=== PATIENT | male | born 1985 | race Caucasian/White ===

== ENCOUNTER 2017-05-30 09:31 | Day surgery (SDC) | payer OTHER ==
[~2017-05-30] VITALS: Ht 157.5 cm; Wt 59.1 kg
[~2017-05-30 09:31] MED LIST: DOCU-144 PO; KEP100S PO; LANS30TA6 GTB; OXCA300O4 PO; OXCA300T3 PO; SENN-36 PO; UDREG GTB
[2017-05-30] MEDS ORDERED: PROPOFOL 40 ML ONE (10:23)
[2017-05-30] MEDS ORDERED: LIDOCAINE 100 MG SYRINGE ONE (10:23)
[2017-05-30] MEDS ORDERED: FENTAnyl 50 MCG/ML VIAL ONE (10:23)
[2017-05-30] MEDS ORDERED: ETOMIDATE 20 MG INJ ONE (10:23)
[2017-05-30] MEDS ORDERED: RANITIDINE (10:24)
[2017-05-30] MEDS ORDERED: ONDANSETRON 4 MG INJ ONE (10:26)
[2017-05-30 10:27] VITALS: Ht 157.5 cm; Wt 59.1 kg
[2017-05-30 10:38] VITALS: BP 103/71; PULSE 75; RESP 15
[2017-05-30 11:35] VITALS: BP 122/86; PULSE 80; RESP 17
--- NOTE | 2017-06-09 06:18 | GILP ---
DATE OF PROCEDURE: PROCEDURE PERFORMED: Esophagogastroduodenoscopy with biopsy and percutaneous endoscopic gastrostomy. INDICATION: A 31-year-old male with a history of chronic esophagitis, complaints of heartburn and weight loss and also leakage of G-tube, which is in the form of balloon 18-Dutch. The risks of the procedure, related complications, anesthetic risks and alternatives discussed and informed consent was obtained. DESCRIPTION OF PROCEDURE: Patient was brought to the GI lab, sedated by Dr. Atwood. After optimal sedation, scope was passed with much resistance into the esophagus. Had a large hiatal hernia. Z-line was at 25 cc. Biopsy was taken while coming out to rule out Varghese's. He had some erosions in the distal part of the esophagus. Stomach mucosa revealed gastritis. Biopsy taken to rule out H pylori infection. Duodenum, 1st and 2nd part were within normal limits. The replacement tube was removed by deflating the balloon. Again, the valve was not working, so we just removed the balloon by the traction method, which came out easily. Through the same gastrocutaneous fistula, the blue string was passed. It was identified in the stomach, snared with , endoscopically , snared and pulled out through the mouth. The whole procedure was completed by modified Ponsky's technique. Patient was re-scoped. The position of the internal bumper confirmed. Excellent bumper secured. The patient tolerated the procedure very well. IMPRESSION: 1. Hiatal hernia. 2. Esophagitis, rule out Varghese's. 3. Gastritis. 4. Percutaneous endoscopic gastrostomy placement. 5. Removal of the replacement gastrostomy tube. PLAN: Continue H2 susan or PPI. Dietary modification and we will review the histopathology. Dictated By: Suman Ceballos MD /[email or web address]/taylor /Document#: [id number] CC: Suman Ceballos MD; Primary Care;*End*
== END 2017-05-30 13:36 | disposition home or self-care (01) ==
LOC: GIL 09:31
PROVIDERS: ATTEND Internal Medicine Gastroenterology
DX: K21.0 Gastro-esophageal reflux disease with esophagitis (principal); K44.9 Diaphragmatic hernia without obstruction or gangrene; K29.70 Gastritis, unspecified, without bleeding; R62.59 Other lack of expected normal physiological development in childhood
CPT/HCPCS: 43239; 43246; 88305; 88313; J2001; J2405; J3010; Z7610; 88312

== ENCOUNTER 2017-07-17 17:33 | Inpatient (IN) | payer OTHER ==
[~2017-07-17] VITALS: Ht 165.1 cm; Wt 54.2 kg
[~2017-07-17 17:33] MED LIST changes: +RANITIDINE
[2017-07-17 18:00] VITALS: BP 135/78; PULSE 126; RESP 22
[2017-07-17 18:13] VITALS: Ht 165.1 cm; Wt 54.2 kg
[2017-07-17] MEDS: SOD CHLORIDE 0.9% 1,000 ML IV SCH (18:57)
[2017-07-17] MEDS ORDERED: NA PHOSPHATE/BIPHOS 133 ML ENEMA PR PRN (19:00)
[2017-07-17] MEDS ORDERED: NITROGLYCERIN (SL) 0.4 MG TAB SL PRN (19:00)
[2017-07-17] MEDS ORDERED: DOCUSATE SODIUM 100 MG CAP PO SCH (19:00)
[2017-07-17] MEDS ORDERED: MAGNESIUM HYDROXIDE 30ML CUP PO PRN (19:00)
[2017-07-17] MEDS ORDERED: LORAZEPAM 2 MG INJ IV PRN (19:00)
[2017-07-17] MEDS ORDERED: ALBUTEROL/IPRATROPIUM (NEB) 3 ML AMP HHN PRN (19:00)
[2017-07-17] MEDS ORDERED: HYDROCODONE/APAP (5/325) TAB PO PRN (19:00)
[2017-07-17] MEDS ORDERED: NACL 0.9% 3 ML SYG IV SCH (19:00)
[2017-07-17] MEDS ORDERED: VANCOMYCIN IV PER PHARMACY XX SCH (19:00)
[2017-07-17] MEDS ORDERED: morphine 2 MG INJ IV PRN (19:00)
[2017-07-17] MEDS ORDERED: ONDANSETRON 4 MG INJ IV PRN (19:00)
[2017-07-17] MEDS ORDERED: hydrALAzine 20 MG INJ IV PRN (19:00)
[2017-07-17] MEDS ORDERED: DOCUSATE SODIUM 100 MG CAP PO PRN (19:00)
[2017-07-17] MEDS ORDERED: ACETAMINOPHEN 325 MG TAB PO PRN (19:00)
--- NOTE | 2017-07-17 19:11 | HP ---
Date/Time of Note Date/Time of Note DATE: 07/17/17 TIME: 19:10 Assessment/Plan VTE Prophylaxis VTE Prophylaxis Intervention: SCD's Assessment/Plan Chief Complaint/Hosp Course Assessment and plan: 31-year-old male with vomiting, abdominal pain, cough, signs of mild pneumonia and elevated LFTs, prior history of cerebral palsy and STUDIO DESIGNER shunt 1. Cough, abdominal pain, vomiting: Likely secondary to patient's mild pneumonia -Check H, A1c, lipid panel, continue IV fluids and aztreonam antibiotics given his multiple drug allergy -Tylenol as needed pain fevers, follow final cultures 2. History of cerebral palsy, patient has STUDIO DESIGNER shunt in place -Monitor for now 3. Epilepsy: No signs of any present seizure activity -Continue Keppra at current dose 4. Tachycardia: Likely secondary to #1, continue broad-spectrum antibiotics, monitor heart rate 5. Elevated LFTs and common bile duct stone: Apparently this was found on imaging studies at outside hospital, but looking at the CT abdomen pelvis results myself, I do not see this documented. The AST and ALT were mildly elevated -May need to repeat CT abdomen pelvis result here -We will monitor LFTs and check hepatitis panel - Problems: HPI/ROS Admit Date/Time Admit Date/Time Jul 17, 2017 at 17:33 Hx of Present Illness 31-year-old male past medical history of cerebral palsy, epilepsy, nonambulatory , history of STUDIO DESIGNER shunt, sent over from [facility] due to insurance purposes. Patient earlier today was having complaints of abdominal pain, nausea vomiting. He was noted to have vomiting 2 that started last night nonbilious nonbloody. Patient was recently treated at [facility] from July 09 2 July 14 for a STUDIO DESIGNER shunt malformation which apparently was repaired. Signs of any active seizure activity since then. No signs of any upper or lower GI bleeding, fevers or chills, dizziness, diarrhea or constipation. When he went to the outside hospital he was found with elevated LFTs today, and signs of possible pneumonia on his chest x-ray. PMH/Family/Social Past Surgical History STUDIO DESIGNER shunt placement Family History Significant Family History: no pertinent family hx Social History Alcohol Use: none Smoking Status: Never smoker Drug Use: none Exam/Review of Systems Exam Exam General: Lying in bed, family at bedside HEENT: Unable to fully assess as patient has eyes closed Neck: Supple Respiratory: Clear to auscultation bilateral Cardiovascular: S1, S2 heard, tachycardic Abdomen: G-tube in place, non-distended, nontender Musculoskeletal: No lower extremity edema Neuro: Unable to fully assess because the patient's cerebral palsy Medications Medications Current Medications Ondansetron HCl (Zofran Inj) 4 mg Q6H PRN IV NAUSEA AND/OR VOMITING; Start at 19:00 Acetaminophen (Tylenol Tab) 650 mg Q6H PRN PO PAIN LEVEL 1-3 OR FEVER; Start at 19:00 Acetaminophen/ Hydrocodone Bitart ([place] (5/325)) 1 tab Q6H PRN PO MODERATE PAIN LEVEL 4-6; Start 07/17/17 at 19:00 Morphine Sulfate (morphine) 2 mg Q4H PRN IV SEVERE PAIN LEVEL 7-10; Start 07/17 at 19:00 Docusate Sodium (Colace) 100 mg Q12H PRN PO CONSTIPATION; Start 07/17/17 at 19: 00 Magnesium Hydroxide (Milk Of Mag) 30 ml DAILY PRN PO CONSTIPATION; Start at 19:00 Sodium Biphosphate/ Sodium Phosphate (Fleet Enema) 133 ml DAILY PRN NE CONSTIPATION; Start 07/17/17 at 19:00 Lorazepam 0.5 mg 0.5 mg Q6H PRN IV ANXIETY; Start 07/17/17 at 19:00 Sodium Chloride (NS) 1,000 ml @ 125 mls/hr Q8H IV Last administered on t 18:57; Admin Dose 125 MLS/HR; Start 07/17/17 at 18:43 Hydralazine HCl (Apresoline) 10 mg Q6H PRN IV ELEVATED BLOOD PRESSURE; Start at 19:00 Nitroglycerin (Nitroglycerin (Sl Tab) 0.4 Mg) 1 tab Q5M PRN SL ANGINA; Start at 19:00 Docusate Sodium (Colace) 100 mg Q12H PO ; Start 07/17/17 at 19:00 Lansoprazole (Prevacid) 30 mg BID GTB ; Start 07/17/17 at 21:00 Metoclopramide HCl (Reglan Liq) 10 mg Q6 GTB ; Start 07/18/17 at 00:00 Oxcarbazepine (Trileptal Susp (Ped)) 300 mg BID PO ; Start 07/17/17 at 21:00 Oxcarbazepine (Trileptal) 300 mg BID PO ; Start 07/17/17 at 21:00 Senna 2 tab 2 tab BID PO ; Start 07/17/17 at 21:00 Aztreonam (Azactam 1gm/NS (Pmx)) 50 ml @ 100 mls/hr Q12 IVPB ; Start 07/17/17 at 21:00 Levetiracetam (Keppra) 1,000 mg BID PO ; Start 07/17/17 at 21:00 SHAY SEO Jul 17, 2017 19:11
[2017-07-17 19:29] LABS: HAAIG REFLEX REFLEX FILED
[2017-07-17] MEDS ORDERED: MAGNESIUM HYDROXIDE 30ML CUP GTB PRN (19:45)
[2017-07-17 19:49] LABS: INR 1.04; PROTIME 13.6 Sec (12.2-14.2); PT RATIO 1.1
[2017-07-17] MEDS ORDERED: HYDROCODONE/APAP (5/325) TAB GTB PRN (19:49)
[2017-07-17 19:50] LABS: PARTIAL THROMBOPLASTIN TIME 25.9 Sec (25.0-35.0)
[2017-07-17] MEDS ORDERED: DOCUSATE SODIUM 10 MG/ML (10ML CUP) GTB PRN (20:00)
[2017-07-17] MEDS ORDERED: ACETAMINOPHEN 650MG/20.3ML CUP GTB PRN (20:00)
[2017-07-17] MEDS ORDERED: DOCUSATE SODIUM 10 MG/ML (10ML CUP) PO PRN (20:00)
[2017-07-17 20:21] VITALS: BP 136/79; RESP 16
[2017-07-17 20:42] LABS: HEPATITIS B CORE ANTIBODY NEGATIVE (NEGATIVE)
[2017-07-17] MEDS: AZTREONAM 1 GM/NS (PMX) 50 ML IVPB SCH (20:45)
[2017-07-17] MEDS: LEVETIRACETAM 500 MG TAB GTB SCH (20:48)
[2017-07-17] MEDS: DOCUSATE SODIUM 10 MG/ML (10ML CUP) GTB SCH (20:48)
[2017-07-17] MEDS: SENNA TAB GTB SCH (20:48)
[2017-07-17] MEDS: LANSOPRAZOLE 30 MG CAP GTB SCH (20:48)
[2017-07-17] MEDS: OXCARBAZEPINE 300 MG TAB GTB SCH (20:49)
[2017-07-17] MEDS ORDERED: LEVETIRACETAM (100 MG/ML PO SYG) PO SCH (21:00)
[2017-07-17] MEDS ORDERED: OXCARBAZEPINE SUSP 60 MG/ML (PO SYG) PO SCH (21:00)
[2017-07-17 21:30] VITALS: PULSE 120
[2017-07-17 22:27] LABS: ADD UMIC NO; UR ASCORBIC ACID 40 mg/dL (NEGATIVE); UR BILIRUBIN (Dip) NEGATIVE (NEGATIVE); UR BLOOD (Dip) NEGATIVE (NEGATIVE); UR CLARITY CLEAR (CLEAR); UR COLOR YELLOW (YELLOW); UR GLUCOSE (Dip) 2+ mg/dL (NEGATIVE); UR KETONES (Dip) NEGATIVE (NEGATIVE); UR LEUKOCYTE ESTERASE (Dip) NEGATIVE Leu/ul (NEGATIVE); UR NITRITE (Dip) NEGATIVE (NEGATIVE); UR TOTAL PROTEIN (Dip) NEGATIVE (NEGATIVE); UR UROBILINOGEN (Dip) 1+ mg/dL (NEGATIVE)
[2017-07-17 22:30] VITALS: PULSE 110
[2017-07-17] MEDS: METOCLOPRAMIDE (1 MG/ML) 10 ML CUP GTB SCH (23:05)
[2017-07-17 23:11] VITALS: PULSE 106
[2017-07-18] VITALS (7 sets, daily range): BP systolic 91–120; BP diastolic 52–75; PULSE 92–104; RESP 18–21
[2017-07-18] MEDS: SOD CHLORIDE 0.9% 1,000 ML IV SCH ×4 (03:17→23:37)
[2017-07-18] MEDS: METOCLOPRAMIDE (1 MG/ML) 10 ML CUP GTB SCH ×4 (05:19→23:37)
[2017-07-18] MEDS ORDERED: PANTOPRAZOLE 40 MG INJ IV SCH ×2 (06:00→16:30)
[2017-07-18 06:12] LABS: BASOPHILS % 0.5 % (0.0-2.0); EOSINOPHILS # 0.5 10^3/ul (0.0-0.5); EOSINOPHILS % 5.3 % (0.0-7.0); HEMATOCRIT 39.4 % (42.0-52.0); HEMOGLOBIN 13.3 g/dl (14.0-18.0); LYMPHOCYTES # 1.8 10^3/ul (0.8-2.9); MEAN CORPUSCULAR HEMOGLOBIN 28.7 pg (29.0-33.0); MEAN CORPUSCULAR HGB CONC 33.8 g/dl (32.0-37.0); MEAN CORPUSCULAR VOLUME 85.1 fl (82.0-101.0); MEAN PLATELET VOLUME 11.2 fl (7.4-10.4); MONOCYTE # 1.2 10^3/ul (0.3-0.9); MONOCYTES % 13.6 % (0.0-11.0); NEUTROPHILS % 59.4 % (39.0-77.0); PLATELET COUNT 239 10^3/UL (140-415); RED BLOOD COUNT 4.63 10^6/ul (4.70-6.10); RED CELL DISTRIBUTION WIDTH 13.2 % (11.5-14.5); WHITE BLOOD COUNT 8.4 10^3/ul (4.8-10.8)
[2017-07-18 06:44] LABS: ALBUMIN 3.5 g/dl (3.3-4.9); BILIRUBIN,INDIRECT 0.2 mg/dl (0-1.1); BILIRUBIN,TOTAL 0.2 mg/dl (0.2-1.3); TOTAL PROTEIN 6.9 g/dl (6.1-8.1)
[2017-07-18 06:46] LABS: CALCIUM 8.5 mg/dl (8.4-10.2); CHOL/HDL RATIO 3.1 RATIO; CREATININE 0.52 mg/dl (0.61-1.24); MAGNESIUM 2.2 mg/dl (1.7-2.5); PHOSPHORUS 3.1 mg/dl (2.5-4.9); POTASSIUM 4.2 mmol/L (3.5-5.1)
[2017-07-18 08:22] LABS: THYROID STIMULATING HORMONE 1.71 MIU/L (0.465-4.680)
[2017-07-18] MEDS: AZTREONAM 1 GM/NS (PMX) 50 ML IVPB SCH ×2 (09:19→20:27)
[2017-07-18] MEDS: LANSOPRAZOLE 30 MG CAP GTB SCH ×2 (09:20→20:26)
[2017-07-18] MEDS: DOCUSATE SODIUM 10 MG/ML (10ML CUP) GTB SCH ×2 (09:20→20:26)
[2017-07-18] MEDS: OXCARBAZEPINE 300 MG TAB GTB SCH ×2 (09:20→20:26)
[2017-07-18] MEDS: SENNA TAB GTB SCH ×2 (09:20→20:26)
[2017-07-18] MEDS: LEVETIRACETAM 500 MG TAB GTB SCH ×2 (09:20→20:26)
[2017-07-18] MEDS ORDERED: NA PHOSPHATE/BIPHOS 133 ML ENEMA PR ONE (16:00)
--- NOTE | 2017-07-18 16:04 | PN ---
Date/Time of Note Date/Time of Note DATE: 07/18/17 TIME: 15:59 Assessment/Plan VTE Prophylaxis VTE Prophylaxis Intervention: SCD's Lines/Catheters IV Catheter Type (from Nrsg): Peripheral IV Urinary Cath still in place: No Assessment/Plan Chief Complaint/Hosp Course Assessment and plan: 31-year-old male with vomiting, abdominal pain, cough, signs of mild pneumonia and elevated LFTs, prior history of cerebral palsy and PROCUREMENT MANAGER shunt. 1. Cough, abdominal pain, vomiting: Likely secondary to patient's mild pneumonia. Symptoms appear to be improving overall -For now continue IV fluids and aztreonam antibiotics given his multiple drug allergy -Tylenol as needed pain fevers, follow final cultures 2. History of cerebral palsy, patient has PROCUREMENT MANAGER shunt in place, and this was revised at [facility] during recent admission there from July 11 to July 14 2017 -Monitor for now 3. Epilepsy: No signs of any present seizure activity -Continue Keppra at current dose 4. Tachycardia: Likely secondary to #1, resolved now - continue broad-spectrum antibiotics, monitor heart rate 5. Elevated LFTs and common bile duct stone: Apparently this was found on imaging studies at outside hospital, but looking at the CT abdomen pelvis results myself, I do not see this documented. The AST and ALT were mildly elevated, and still are today, but bilirubin levels are normal. Hepatitis panel is normal -We will continue to monitor LFTs Problems: Subjective 24 Hr Interval Summary Free Text/Dictation Patient not able to get MRCP because of PROCUREMENT MANAGER shunt. Less tachycardia in the last 24 hours. No acute events overnight. Exam/Review of Systems Vital Signs Vitals Vital Signs Date Time Temp Pulse Resp B/P Pulse Ox O2 Delivery O2 Flow Rate FiO2 07/18/17 14:17 97.2 82 18 120/75 98 07/18/17 09:34 Nasal Cannula 2.0 Intake and Output 07/17/17 07/17/17 07/18/17 15:00 23:00 07:00 Intake Total 50 ml 1250 ml Balance 50 ml 1250 ml Exam General: Lying in bed, family at bedside HEENT: Unable to fully assess as patient has eyes closed Neck: Supple Respiratory: Clear to auscultation bilateral Cardiovascular: S1, S2 heard, tachycardic Abdomen: G-tube in place, non-distended, nontender Musculoskeletal: No lower extremity edema Neuro: Unable to fully assess because the patient's cerebral palsy Results Result Diagram: 07/18/17 0507 07/18/17 0507 Results 24 hrs Laboratory Tests Test 07/17/17 19:00 07/17/17 22:00 07/18/17 05:07 Prothrombin Time 13.6 Prothrombin Time Ratio 1.1 INR International Normalized Ratio 1.04 Activated Partial Thromboplast Time 25.9 Free Thyroxine 0.90 Hepatitis B Surface Antigen NEGATIVE Hepatitis B Core Total Antibody NEGATIVE Hepatitis C Antibody NEGATIVE Urine Color YELLOW Urine Clarity CLEAR Urine pH 7.0 Urine Specific Ball 1.020 Urine Ketones NEGATIVE Urine Nitrite NEGATIVE Urine Bilirubin NEGATIVE Urine Urobilinogen 1+ H Urine Leukocyte Esterase NEGATIVE Urine Hemoglobin NEGATIVE Urine Glucose 2+ H Urine Total Protein NEGATIVE White Blood Count 8.4 # Red Blood Count 4.63 L Hemoglobin 13.3 L Hematocrit 39.4 L Mean Corpuscular Volume 85.1 Mean Corpuscular Hemoglobin 28.7 L Mean Corpuscular Hemoglobin Concent 33.8 Red Cell Distribution Width 13.2 Platelet Count 239 Mean Platelet Volume 11.2 #H Neutrophils % 59.4 Lymphocytes % 21.0 Monocytes % 13.6 H Eosinophils % 5.3 Basophils % 0.5 Nucleated Red Blood Cells % 0.0 Neutrophils # (Manual) 5.0 Lymphocytes # 1.8 Monocytes # 1.2 H Eosinophils # 0.5 Basophils # 0.0 Nucleated Red Blood Cells # 0.0 Sodium Level 145 H Potassium Level 4.2 Chloride Level 106 Carbon Dioxide Level 25 Anion Gap 18 H Blood Urea Nitrogen 7 Creatinine 0.52 L Glucose Level 108 Hemoglobin A1c 5.2 Calcium Level 8.5 Phosphorus Level 3.1 Magnesium Level 2.2 Total Bilirubin 0.2 Direct Bilirubin 0.00 Indirect Bilirubin 0.2 Aspartate Amino Transf (AST/SGOT) 142 H Alanine Aminotransferase (ALT/SGPT) 252 H Alkaline Phosphatase 269 H Total Protein 6.9 Albumin 3.5 Triglycerides Level 60 Cholesterol Level 126 LDL Cholesterol, Calculated 74 HDL Cholesterol 40 Cholesterol/HDL Ratio 3.1 Thyroid Stimulating Hormone (TSH) 1.710 Medications Medications Current Medications Ondansetron HCl (Zofran Inj) 4 mg Q6H PRN IV NAUSEA AND/OR VOMITING; Start at 19:00 Morphine Sulfate (morphine) 2 mg Q4H PRN IV SEVERE PAIN LEVEL 7-10; Start 07/17 at 19:00 Sodium Biphosphate/ Sodium Phosphate (Fleet Enema) 133 ml DAILY PRN CA CONSTIPATION; Start 07/17/17 at 19:00 Lorazepam 0.5 mg 0.5 mg Q6H PRN IV ANXIETY; Start 07/17/17 at 19:00 Sodium Chloride (NS) 1,000 ml @ 125 mls/hr Q8H IV Last administered on 13:02; Admin Dose 125 MLS/HR; Start 07/17/17 at 18:43 Hydralazine HCl (Apresoline) 10 mg Q6H PRN IV ELEVATED BLOOD PRESSURE; Start at 19:00 Nitroglycerin (Nitroglycerin (Sl Tab) 0.4 Mg) 1 tab Q5M PRN SL ANGINA; Start at 19:00 Lansoprazole (Prevacid) 30 mg BID GTB Last administered on 07/18/17 09:20; Admin Dose 30 MG; Start 07/17/17 at 21:00 Metoclopramide HCl (Reglan Liq) 10 mg Q6 GTB Last administered on 07/18/17 13: 03; Admin Dose 10 MG; Start 07/18/17 at 00:00 Oxcarbazepine (Trileptal) 300 mg BID GTB Last administered on 07/18/17 09:20; Admin Dose 300 MG; Start 07/17/17 at 21:00 Senna 2 tab 2 tab BID GTB Last administered on 07/18/17 09:20; Admin Dose 2 TAB; Start 07/17/17 at 21:00 Aztreonam (Azactam 1gm/NS (Pmx)) 50 ml @ 100 mls/hr Q12 IVPB Last administered on 07/18/17 09:19; Admin Dose 100 MLS/HR; Start 07/17/17 at 21:00 Levetiracetam (Keppra) 1,000 mg BID GTB Last administered on 07/18/17 09:20; Admin Dose 1,000 MG; Start 07/17/17 at 21:00 Magnesium Hydroxide (Milk Of Mag) 30 ml DAILY PRN GTB CONSTIPATION; Start 07/17 at 19:45 Acetaminophen (Tylenol Liquid) 650 mg Q6H PRN GTB PAIN LEVEL 1-3 OR FEVER; Start 07/17/17 at 20:00 Docusate Sodium (Colace Liquid Cup) 100 mg Q12 GTB Last administered on t 09:20; Admin Dose 100 MG; Start 07/17/17 at 21:00 Acetaminophen/ Hydrocodone Bitart ([place] (5/325)) 1 tab Q6H PRN GTB MODERATE PAIN LEVEL 4-6; Start 07/17/17 at 19:49 Docusate Sodium (Colace Liquid Cup) 100 mg Q12H PRN GTB CONSTIPATION; Start at 20:00 Sodium Biphosphate/ Sodium Phosphate (Fleet Enema) 133 ml ONCE ONCE CA ; Start 07/18/17 at 16:00; Stop 07/18/17 at 16:01 SHAY SEO Jul 18, 2017 16:03
[2017-07-18] MEDS ORDERED: CEPASTAT LOZENGE MT PRN (16:30)
[2017-07-18] MEDS ORDERED: ALBUTEROL/IPRATROPIUM (NEB) 3 ML AMP HHN SCH (16:30)
[2017-07-19 02:50] VITALS: BP 118/69; RESP 20
[2017-07-19] MEDS: METOCLOPRAMIDE (1 MG/ML) 10 ML CUP GTB SCH ×3 (05:26→17:14)
[2017-07-19 06:39] LABS: BASOPHIL # 0.1 10^3/ul (0.0-0.1); BASOPHILS % 0.8 % (0.0-2.0); EOSINOPHILS # 0.4 10^3/ul (0.0-0.5); EOSINOPHILS % 4.5 % (0.0-7.0); HEMOGLOBIN 13.2 g/dl (14.0-18.0); LYMPHOCYTES # 1.6 10^3/ul (0.8-2.9); LYMPHOCYTES % 20.3 % (15.0-51.0); MEAN CORPUSCULAR HEMOGLOBIN 28.3 pg (29.0-33.0); MEAN CORPUSCULAR HGB CONC 33.8 g/dl (32.0-37.0); MEAN CORPUSCULAR VOLUME 83.7 fl (82.0-101.0); MEAN PLATELET VOLUME 11.2 fl (7.4-10.4); MONOCYTE # 1.1 10^3/ul (0.3-0.9); MONOCYTES % 13.3 % (0.0-11.0); NEUTROPHILS % 60.8 % (39.0-77.0); PLATELET COUNT 267 10^3/UL (140-415); RED BLOOD COUNT 4.66 10^6/ul (4.70-6.10); RED CELL DISTRIBUTION WIDTH 13.1 % (11.5-14.5); WHITE BLOOD COUNT 7.9 10^3/ul (4.8-10.8)
[2017-07-19 07:04] LABS: CREATININE 0.47 mg/dl (0.61-1.24); POTASSIUM 3.5 mmol/L (3.5-5.1)
[2017-07-19 08:00] VITALS: BP 112/64; RESP 18
[2017-07-19] MEDS: SOD CHLORIDE 0.9% 1,000 ML IV SCH ×2 (08:15→17:14)
[2017-07-19] MEDS: LEVETIRACETAM 500 MG TAB GTB SCH (08:48)
[2017-07-19] MEDS: DOCUSATE SODIUM 10 MG/ML (10ML CUP) GTB SCH (08:48)
[2017-07-19] MEDS: OXCARBAZEPINE 300 MG TAB GTB SCH (08:48)
[2017-07-19] MEDS: LANSOPRAZOLE 30 MG CAP GTB SCH (08:48)
[2017-07-19] MEDS: SENNA TAB GTB SCH (08:48)
[2017-07-19] MEDS: AZTREONAM 1 GM/NS (PMX) 50 ML IVPB SCH (08:49)
--- NOTE | 2017-07-19 16:53 | PDOCDIS ---
Discharge Instructions CONDITION Patient Condition: Stable HOME CARE INSTRUCTIONS: Special Diet: Tube feeds ACTIVITY: Activity Restrictions: Slowly Increase Activity FOLLOW UP/APPOINTMENTS Follow-up Plan Please follow up with your doctor in the clinic in 1 week. SHAY SEO Jul 19, 2017 16:53
[2017-07-19] MEDS ORDERED: LEVO750T25 PO (16:58)
--- NOTE | 2017-07-19 17:50 | DS ---
DATE OF ADMISSION: 07/17/2017 DATE OF DISCHARGE: 07/19/2017 HOSPITAL COURSE: The patient came in with cough, abdominal pain, nausea, and vomiting. He was transferred from outside hospital due to insurance purposes. He was found with elevated liver function tests and had imaging studies performed as well. When he came in he had slightly elevated AST and ALT in the low 200 range, but his abdominal ultrasound was negative for any acute findings. He also had signs of upper respiratory infection and possible mild pneumonia. So he was placed on aztreonam antibiotics. Over the course of his hospital stay he had some tachycardia on admission that improved. He was back at his baseline status. He does have a history of cerebral palsy. He had no fever or leukocytosis on during the stay. His liver function tests were also trending down by the time of discharge. We are going to feed him today as well through the G tube with his normal feeds of Boost and Ensure. He was able to tolerate a diet and he will be discharged home today in improved condition. DISCHARGE MEDICATIONS: 1. Levaquin 750 mg daily. 2. Colace 100 mg q.12 hours. 3. Prevacid 30 mg b.i.d. 4. Keppra 1000 mg b.i.d. 5. Reglan 10 mg q.6 hours. 6. Trileptal 300 mg b.i.d. 7. Oxcarbazepine 300 mg b.i.d. 8. Senna 2 tabs b.i.d. FOLLOWUP: Continue to follow with regular doctor in the clinic in next 1-2 weeks. FINAL DIAGNOSES: 1. Cerebral palsy. 2. Epilepsy. 3. History of ventriculoperitoneal (PRODUCTION CONTROL PLANNER) shunt. 4. Mild pneumonia, resolving. 5. Elevated liver function tests (LFTs), unclear source resolving. Time spent discharging the patient 40 minutes. Dictated By: Mike Perez MD /luis/jess /Document#: [id number]
== END 2017-07-19 18:38 | disposition home or self-care (01) | DRG 195 ==
LOC: PP2 17:33
PROVIDERS: ADMIT Hospitalist; ATTEND Hospitalist
DX: J18.9 Pneumonia, unspecified organism (principal); G80.9 Cerebral palsy, unspecified; Z93.1 Gastrostomy status; G40.909 Epilepsy, unspecified, not intractable, without status epilepticus; R00.0 Tachycardia, unspecified; Z98.2 Presence of cerebrospinal fluid drainage device; R74.8 Abnormal levels of other serum enzymes
CPT/HCPCS: 80048; 80061; 80076; 81003; 83036; 83735; 84100; 84439; 84443; 85025; 85610; 85730; 86704; 86709; 86803; 87081; 87086; 87340; J7030

== ENCOUNTER 2017-07-30 11:58 | Inpatient (IN) | payer OTHER ==
[~2017-07-30] VITALS: Ht 167.6 cm; Wt 57.1 kg
[~2017-07-30 11:58] MED LIST changes: +LEVO750T25 PO
--- NOTE | 2017-07-30 13:19 | ERA ---
ER Documentation Chief Complaint Date/Time DATE: 07/30/17 TIME: 13:12 Chief Complaint SENT FROM [place] FOR ADMISSION. PT WAS DX WITH PNA/FEVER HPI This 31-year-old male is brought in for a [place] because It in this hospital. Diagnosis is pneumonia with sepsis. He was sent in for direct admission however there are no beds in the hospital so he will be monitored in the emergency room. His caretakers with him although the patient is nonverbal because he has cerebral palsy. Breathing very fast and has a high heart rate. [place] has already been administered fluid and appropriate antibiotics to the septic patient. ROS Unobtainable from patient Medications Home Meds Active Scripts Levofloxacin* (Levaquin*) 750 Mg Tablet, 750 MG PO DAILY for 5 Days, #5 TAB Prov:SHAY SEO. 07/19/17 Lansoprazole* (Prevacid* Soltab) 30 Mg Tab, 30 MG GTB BID for 30 Days, TAB Prov:MIGUEL ANGEL ZAPATA V. ORDER DESK CALLER 10/12/16 Metoclopramide* (Reglan*) 10 Mg/10 Ml Soln, 10 MG GTB Q6 for 30 Days, ML HOLD IF HAVING DIARRHEA (GREATER THAN 3 BOWEL MOVEMENT A DAY) Prov:MIGUEL ANGEL ZAPATA V. ORDER DESK CALLER 10/12/16 Docusate Sodium* (Colace*) 100 Mg Cap, 100 MG PO Q12H for 30 Days, CAP Prov:STEVE ATWOOD 03/17/16 Sennosides* (Senokot*) 1 Tab Tab, 2 TAB PO BID for 30 Days, TAB Prov:STEVE ATWOOD 03/17/16 Levetiracetam* (Keppra* (Ped)) 100 Mg/Ml Liq, 1000 MG PO BID for 30 Days, BOTTLE Prov:REGSTEVE PAULA 03/17/16 Oxcarbazepine* (Trileptal*) 300 Mg Tab, 300 MG PO BID for 30 Days, TAB Prov:THEO JONES ORDER DESK CALLER 12/30/15 Reported Medications [Ranitidine] No Conflict Check 05/30/17 Oxcarbazepine* (Oxcarbazepine* Liq) 300 Mg/5 Ml Oral.susp, 300 MG PO BID, ML 10/09/16 Allergies Allergies: Coded Allergies: Penicillins (Verified Allergy, Unknown, 09/28/15) amoxicillin (Verified Allergy, Unknown, 09/28/15) throat swells hives azithromycin (Verified Allergy, Unknown, 09/28/15) codeine (Unverified Allergy, Unknown, 09/28/15) morphine (Unverified Allergy, Unknown, 09/28/15) vancomycin (Unverified Allergy, Unknown, 08/26/15) PMhx/Soc History of Surgery: Yes (MANAGER FOOD Shunt - 07/11, at , spine repair (scoliosis)) Anesthesia Reaction: No Hx Neurological Disorder: Yes (cerebral palsy, seizures) Hx Respiratory Disorders: No Hx Cardiac Disorders: Yes ("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 Neck: Full range of motion..~ No meningismus. Resp: Decreased bibasilar breath sounds with good air movement, Tachypnea rate of 30 Cardio: Regular Tachycardia no murmurs Abd: Soft, No apparent tenderness, non distended. Normal bowel sounds Skin: No petechiae or rashes Ext: No cyanosis, or edema Neur: Awake and alert, Response to pain, moves all 4 extremities Procedures/MDM 31-year-old male being has in the ER with unstable vital signs. Tachycardic and tachypneic with clammy skin. Administered another liter of fluid placed him on a monitor and placed oxygen on the patient for now. His work of breathing continues like this I will place him on BiPAP. Reviewed his workup from [place] and believe any other diagnostic testing at this point would be redundant unless condition changes. security monitor interpretation: Sinus tachycardia without other arrhythmia. Departure Diagnosis: Primary Impression: Sepsis due to pneumonia Condition: Jose MENESESWHITNEYSKYLER BOWERS Jul 30, 2017 13:19
[2017-07-30] MEDS ORDERED: SOD CHLORIDE 0.9% 1,000 ML IV ONE (13:30)
[2017-07-30] MEDS ORDERED: ONDANSETRON 4 MG INJ IV PRN (14:30)
[2017-07-30] MEDS ORDERED: ACETAMINOPHEN 325 MG TAB PO PRN (14:30)
[2017-07-30] MEDS ORDERED: NACL 0.9% 3 ML SYG IV SCH (15:00)
[2017-07-30] MEDS ORDERED: VANCOMYCIN IV PER PHARMACY XX SCH (15:00)
--- NOTE | 2017-07-30 15:19 | HP ---
Date/Time of Note Date/Time of Note DATE: 07/30/17 TIME: 15:03 Assessment/Plan VTE Prophylaxis VTE Prophylaxis Intervention: LMWH Lines/Catheters Urinary Cath still in place: Yes Reason Cath still needed: urinary retention Assessment/Plan Chief Complaint/Hosp Course 31 yo male with h/o cerebral palsy, epilepsy, EMERGENCY RESPONSE OFFICER shunt for hydrocephalus, recent admission for HCAP who presnets with sepsis, likely 2/2 pneumonia Sepsis likely 2/2 pneumonia: - Daptomycin (vanco allergic) and cefepime for now - Has been adequately fluid resuscitated - CXR pending - Await - Will need to communicate w [facility] about micro results Epilepsy - Continue keppra 1000 BID and oxcarbazepine 300 BID Tube feeds LMWH for ppx Problems: HPI/ROS Admit Date/Time Admit Date/Time Hx of Present Illness 31 yo male with cerebral palsy, EMERGENCY RESPONSE OFFICER shunt w revision and infection previously, recent episode of pnemonia for which was hospitalized last month here who presents with sepsis. Patient had presumed pneumonia last month. Given abx and improved. Then since past Monday, his mother at bedside says that he has felt very warm and looked "red". She took his temperature and it was elevated to 102. She brought him to [place] ED this morning where he was found to be febrile, hypotensive to 88/60, HR 134, mildly hypoxic to low 90s. CXR showed a RLL infiltrate. Head CT showed no hdyrocephalus or intracranial pathology. UA was unremarkable. He was given cefepime, linezolid, and flagyl and transferred to [facility]. Here, he arrived still febrile and tachycardic, but normotensive. He is unable to provide a history given his cerebral palsy. PMH/Family/Social Past Medical History Cerebral palsy EMERGENCY RESPONSE OFFICER shunt w revision in 2004 for hydrocephalus HCAP Past Surgical History EMERGENCY RESPONSE OFFICER shunt Family History Significant Family History: no pertinent family hx Social History Alcohol Use: none Smoking Status: Never smoker Drug Use: none Exam/Review of Systems Vital Signs Vitals Vital Signs Date Time Temp Pulse Resp B/P Pulse Ox O2 Delivery O2 Flow Rate FiO2 07/30/17 13:58 Nasal Cannula 2 07/30/17 12:20 99.5 113 20 156/98 96 Exam Exam Alert, unable to provide history given cerebral palsy Appears diaphoretic, toxic appearance Tachy, regular heart sounds, no murmur Respirations are nonlabored, lungs clear anteriorly Abdomen with PEG tube, slightly distended, nontender LE atrophied and some contractions No edema Medications Medications Current Medications Cefepime HCl (Maxipime 2gm/50 ml (Pmx)) 50 ml @ 100 mls/hr Q12 IVPB ; Start 09/05 at 15:00; Status Future Hold Enoxaparin Sodium (Lovenox) 30 mg DAILY SC ; Start 07/31/17 at 09:00; Status UNV Levetiracetam (Keppra Liquid) 1,000 mg BID GTB ; Start 07/30/17 at 15:00; Status UNV Oxcarbazepine (Trileptal Susp (Ped)) 900 mg BID PO ; Start 07/30/17 at 21:00; Status UNV GENESIS MCKENZIE MD Jul 30, 2017 15:14
[2017-07-30 16:08] LABS: BASOPHILS % 0.3 % (0.0-2.0); EOSINOPHILS % 0.4 % (0.0-7.0); HEMATOCRIT 39.2 % (42.0-52.0); HEMOGLOBIN 13.2 g/dl (14.0-18.0); LYMPHOCYTES # 1.9 10^3/ul (0.8-2.9); LYMPHOCYTES % 19.5 % (15.0-51.0); MEAN CORPUSCULAR HEMOGLOBIN 28.6 pg (29.0-33.0); MEAN CORPUSCULAR HGB CONC 33.7 g/dl (32.0-37.0); MEAN CORPUSCULAR VOLUME 84.8 fl (82.0-101.0); MEAN PLATELET VOLUME 10.4 fl (7.4-10.4); MONOCYTE # 1.2 10^3/ul (0.3-0.9); NEUTROPHILS % 67.6 % (39.0-77.0); PLATELET COUNT 516 10^3/UL (140-415); RED BLOOD COUNT 4.62 10^6/ul (4.70-6.10); RED CELL DISTRIBUTION WIDTH 12.9 % (11.5-14.5); WHITE BLOOD COUNT 9.7 10^3/ul (4.8-10.8)
[2017-07-30] MEDS: LEVETIRACETAM (100 MG/ML) 5ML CUP GTB SCH ×2 (16:15→23:25)
[2017-07-30] MEDS: DAPTOMYCIN 450 MG in SOD CHLORIDE 0.9% 100 ML IVPB SCH (16:15)
[2017-07-30 16:28] LABS: ALBUMIN 3.8 g/dl (3.3-4.9); ALBUMIN/GLOBULIN RATIO 0.95; BILIRUBIN,INDIRECT 0.2 mg/dl (0-1.1); BILIRUBIN,TOTAL 0.2 mg/dl (0.2-1.3); CREATININE 0.54 mg/dl (0.61-1.24); POTASSIUM 3.9 mmol/L (3.5-5.1); TOTAL PROTEIN 7.8 g/dl (6.1-8.1)
[2017-07-30 17:58] VITALS: TEMP 100.2
[2017-07-30] MEDS ORDERED: SOD CHLORIDE 0.9% 100 ML ONE (18:56)
[2017-07-30] MEDS ORDERED: IODIXANOL LOCM 100 ML BTL ONE (18:56)
[2017-07-30 19:09] LABS: ADD UMIC YES; UR ASCORBIC ACID NEGATIVE (NEGATIVE); UR BILIRUBIN (Dip) NEGATIVE (NEGATIVE); UR BLOOD (Dip) 1+ mg/dL (NEGATIVE); UR CLARITY CLEAR (CLEAR); UR COLOR YELLOW (YELLOW); UR GLUCOSE (Dip) NEGATIVE (NEGATIVE); UR KETONES (Dip) TRACE mg/dL (NEGATIVE); UR LEUKOCYTE ESTERASE (Dip) NEGATIVE Leu/ul (NEGATIVE); UR NITRITE (Dip) NEGATIVE (NEGATIVE); UR RBC 35 /HPF (0-5); UR SPECIFIC GRAVITY (Dip) 1.012 (1.003-1.030); UR TOTAL PROTEIN (Dip) 1+ mg/dl (NEGATIVE); UR UROBILINOGEN (Dip) NEGATIVE (NEGATIVE)
[2017-07-30 19:17] VITALS: PULSE 120
--- NOTE | 2017-07-30 19:40 | RADRPT ---
PROCEDURE: CT Chest With Contrast CLINICAL INDICATION: Pneumonia TECHNIQUE: Volumetric acquisition of the thorax was performed following the intravenous administra tion of 100 ml of Isovue 370 contrast. Sagittal and coronal re-formations were subsequently reconstr ucted. One or more of the following dose reduction techniques were used: - Automated exposure control. - Adjustment of the mA and/or kV according to patient size. - Use of iterative reconstruction technique. Radiation Dose: CTDI = 10.95 mGy; DLP = 350.72 mGy-cm. COMPARISON: None. FINDINGS: To subcutaneous catheters are seen at the right base of the neck. 1 of the catheters continues infer iorly within the midline subcutaneous fat to the most inferior image. The other catheter extends thr ough the right pectus muscle into the right lateral pleural space extending posteriorly coiling with in the posterior pleural space with the tip located within the posterior right inferior pleural spac e. Lung hdez: The right lower lobe is extremely atelectatic with air bronchograms identified. There i s segmental atelectasis of the posterior right upper lobe. Foci of discoid atelectasis are seen with in the posterior left upper lobe as well as the left lower lobe. The trachea is deviated rightward. The pleural spaces: There is a moderate amount of loculated appearing right pleural fluid accumulati on which measures between 4 and 16 HU. This is seen within the right apex, the right lateral pleural space and to a greater extent within the inferior right pleural space surrounding the atelectatic r ight lower lobe. No pleural fluid accumulation is evident on the left and no pneumothorax is evident . Lymph nodes: No pathologically enlarged nodes are evident. Cardiovascular structures: The heart is upper normal in size. The aorta is intact and normal in yon german. The central pulmonary arteries appear patent. Thyroid: Unremarkable. Superior abdominal structures: The right hemidiaphragm is elevated. Osseous structures: There is a severe 62 degrees dextroscoliotic curve to the thoracolumbar spine. S anastasiya fixation rods are evident and there is posterior fusion. There is anterior osteophytic bridgin g seen through the inferior cervical and superior thoracic spine. IMPRESSION: 1. Two subcutaneous catheters are seen extending inferiorly from the right base of the neck, 1 of w hich continues within the midline anterior subcutaneous fat beyond the limits of the study, while th e other catheter enters into the right pleural space, and is coiled posteriorly with the tip seen wi thin the right posterior inferior pleural space. These likely represent MAJOR CASE DETECTIVE shunt catheters. 2. There is a moderate sized loculated right pleural fluid accumulation which is most extensive inf eriorly about the atelectatic right lower lobe, extends laterally along the pleura and is prominent at the right pulmonary apex measuring between 4 and 16 HU in density. 3. Extensive right lower lobe atelectasis. There is segmental atelectasis involving the posterior r ight upper lobe. Foci of discoid atelectasis are seen within the posterior left upper lobe and the l eft lower lobe. Due to the right sided atelectatic change there is elevation of the right hemidiaphr agm and shift of the trachea rightward. 4. The heart is upper normal in size. The aorta is intact and normal in caliber, and the central pu lmonary arteries are patent. 5. Severe dextroscoliotic curve to the thoracolumbar spine with thoracolumbar fixation rods in plac e and with posterior fusion and with anterior osteophytic bridging seen through the inferior cervica l and proximal thoracic spine. Physician Wilmar Date Time Electronically viewed and signed by Physician Wilmar on 07/30/2017 19:40 /
[2017-07-30 19:47] VITALS: BP 129/73; RESP 19
[2017-07-30 20:01] VITALS: PULSE 120
[2017-07-30] MEDS ORDERED: OXCARBAZEPINE SUSP 60 MG/ML (PO SYG) PO SCH ×2 (21:00)
--- NOTE | 2017-07-30 21:06 | RADRPT ---
PROCEDURE: XR Chest. CLINICAL INDICATION: sepsis TECHNIQUE: AP portable semi upright chest. COMPARISON: Chest 10/10/2016 FINDINGS: There are fixation rods involving the mid and lower thoracic and upper lumbar spine with the mid rin d demonstrating disruption. There is a moderate dextrorotoscoliosis of the mid to lower thoracic spi ne. There is catheter involving the right neck and chest consistent with ventriculostomy. The right hemidiaphragm is elevated. There is a small right pleural effusion. No evidence left pleural effusio n. Negative for pneumothorax. The heart appears mildly enlarged. The pulmonary vessels appear promin ence perivesical indistinctness these findings may represent fluid overload or possibly mild congest tylor heart failure. Right basilar patchy density may represent atelectasis still infiltrate cannot be excluded. Remainder lungs are clear. IMPRESSION: 1. Mild cardiomegaly and findings suggestive of fluid overload or possibly minimal congestive heart failure and interstitial pulmonary edema. 2. Small right pleural effusion. 3. Hazy density at the right lung base may represent atelectasis however rule out infiltrate. RPTAT:AAJJ Physician Antonieta Date Time Electronically viewed and signed by Physician Antonieta on 07/30/2017 15:24 BM/
[2017-07-30] MEDS ORDERED: OXCARBAZEPINE 300 MG TAB GTB SCH (22:00)
[2017-07-30] MEDS: OXCARBAZEPINE 300 MG TAB GTB SCH (23:24)
[2017-07-30] MEDS: CEFEPIME 2GM/50 ML (PMX) 50 ML IVPB SCH (23:25)
[2017-07-30 23:52] VITALS: BP 127/73; RESP 19
[2017-07-31] VITALS (12 sets, daily range): BP systolic 98–122; BP diastolic 57–77; PULSE 111–130; RESP 18–20; Ht 167.6 cm; Wt 57.1 kg
[2017-07-31] MEDS ORDERED: OXCARBAZEPINE 300 MG TAB GTB SCH (09:00)
[2017-07-31] MEDS: CEFEPIME 2GM/50 ML (PMX) 50 ML IVPB SCH ×2 (09:41→20:59)
[2017-07-31] MEDS: LEVETIRACETAM (100 MG/ML) 5ML CUP GTB SCH ×2 (09:41→20:55)
[2017-07-31] MEDS: OXCARBAZEPINE 300 MG TAB GTB SCH (09:42)
[2017-07-31] MEDS: ENOXAPARIN 30 MG/0.3 ML SYG SC SCH (09:48)
--- NOTE | 2017-07-31 15:30 | PN ---
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, recent admission for HCAP who presents with sepsis, likely 2/2 pneumonia Sepsis likely 2/2 pneumonia: - Daptomycin (vanco allergic) and cefepime for now - Has been adequately fluid resuscitated -CT chest shows loculated right pleural fluid accumulation, pulmonology consultation - Await BC - Will need to communicate w Mascorro about micro results Epilepsy - Continue keppra 1000 BID and oxcarbazepine 300 BID Tube feeds LMWH for ppx Problems: Subjective 24 Hr Interval Summary Subjective hx not possible: pt non-verbal Exam/Review of Systems Vital Signs Vitals Vital Signs Date Time Temp Pulse Resp B/P Pulse Ox O2 Delivery O2 Flow Rate FiO2 07/31/17 12:18 111 07/31/17 11:51 97.2 18 110/60 98 07/31/17 08:30 Nasal Cannula 3.0 Intake and Output 07/30/17 07/30/17 07/31/17 15:00 23:00 07:00 Intake Total 510 ml Output Total 600 ml Balance -90 ml Exam Constitutional: non-verbal Respiratory: clear to auscultation Cardiovascular: regular rate and rhythm Gastrointestinal: soft, No distended Musculoskeletal: nl extremities to inspection Results Result Diagram: 07/30/17 1535 07/30/17 1535 Results 24 hrs Laboratory Tests Test 07/30/17 15:35 07/30/17 18:50 07/31/17 09:45 White Blood Count 9.7 # Red Blood Count 4.62 L Hemoglobin 13.2 L Hematocrit 39.2 L Mean Corpuscular Volume 84.8 Mean Corpuscular Hemoglobin 28.6 L Mean Corpuscular Hemoglobin Concent 33.7 Red Cell Distribution Width 12.9 Platelet Count 516 #H Mean Platelet Volume 10.4 Neutrophils % 67.6 Lymphocytes % 19.5 Monocytes % 12.0 H Eosinophils % 0.4 Basophils % 0.3 Nucleated Red Blood Cells % 0.0 Neutrophils # (Manual) 6.5 Lymphocytes # 1.9 Monocytes # 1.2 H Eosinophils # 0.0 Basophils # 0.0 Nucleated Red Blood Cells # 0.0 Sodium Level 144 Potassium Level 3.9 Chloride Level 109 Carbon Dioxide Level 26 Anion Gap 13 Blood Urea Nitrogen 4 L Creatinine 0.54 L Glucose Level 104 Calcium Level 9.0 Total Bilirubin 0.2 Direct Bilirubin 0.00 Indirect Bilirubin 0.2 Aspartate Amino Transf (AST/SGOT) 51 H Alanine Aminotransferase (ALT/SGPT) 120 H Alkaline Phosphatase 376 H Total Protein 7.8 Albumin 3.8 Globulin 4.00 H Albumin/Globulin Ratio 0.95 Urine Color YELLOW Urine Clarity CLEAR Urine pH 8.0 Urine Specific Bryant 1.012 Urine Ketones TRACE A Urine Nitrite NEGATIVE Urine Bilirubin NEGATIVE Urine Urobilinogen NEGATIVE Urine Leukocyte Esterase NEGATIVE Urine Microscopic RBC 35 H Urine Microscopic WBC 2 Urine Hemoglobin 1+ H Urine Glucose NEGATIVE Urine Total Protein 1+ H Creatine Kinase 53 Medications Medications Current Medications Cefepime HCl (Maxipime 2gm/50 ml (Pmx)) 50 ml @ 100 mls/hr Q12 IVPB Last administered on 07/31/17 09:41; Admin Dose 100 MLS/HR; Start 07/30/17 at 15:00 ; Status Future hold Enoxaparin Sodium (Lovenox) 30 mg DAILY SC Last administered on 07/31/17 09:48 ; Admin Dose 30 MG; Start 07/31/17 at 09:00 Levetiracetam 1000 mg 1,000 mg BID GTB Last administered on 07/31/17 09:41; Admin Dose 1,000 MG; Start 07/30/17 at 15:15 Daptomycin/Sodium Chloride (Cubicin/NS) 100 ml @ 200 mls/hr Q24H IVPB Last administered on 07/30/17 16:15; Admin Dose 200 MLS/HR; Start 07/30/17 at 16:30 Oxcarbazepine (Trileptal) 300 mg BID GTB Last administered on 07/31/17 09:42; Admin Dose 300 MG; Start 07/30/17 at 22:00; Stop 07/31/17 at 19:00 Oxcarbazepine (Trileptal Susp (Ped)) 300 mg BID GTB ; Start 07/31/17 at 21:00 OZZY CORNEJO Jul 31, 2017 15:30
[2017-07-31] MEDS: DAPTOMYCIN 450 MG in SOD CHLORIDE 0.9% 100 ML IVPB SCH (17:02)
[2017-07-31] MEDS: OXCARBAZEPINE SUSP 60 MG/ML (PO SYG) GTB SCH (21:02)
[2017-08-01] VITALS (12 sets, daily range): BP systolic 84–121; BP diastolic 56–75; PULSE 85–120; RESP 18–20
[2017-08-01 07:44] LABS: BASOPHIL # 0.1 10^3/ul (0.0-0.1); BASOPHILS % 0.7 % (0.0-2.0); EOSINOPHILS # 0.2 10^3/ul (0.0-0.5); EOSINOPHILS % 2.6 % (0.0-7.0); HEMATOCRIT 39.4 % (42.0-52.0); HEMOGLOBIN 12.8 g/dl (14.0-18.0); LYMPHOCYTES # 2.1 10^3/ul (0.8-2.9); LYMPHOCYTES % 24.9 % (15.0-51.0); MEAN CORPUSCULAR HEMOGLOBIN 27.5 pg (29.0-33.0); MEAN CORPUSCULAR HGB CONC 32.5 g/dl (32.0-37.0); MEAN CORPUSCULAR VOLUME 84.5 fl (82.0-101.0); MEAN PLATELET VOLUME 10.2 fl (7.4-10.4); MONOCYTE # 0.9 10^3/ul (0.3-0.9); MONOCYTES % 10.7 % (0.0-11.0); NEUTROPHILS % 60.8 % (39.0-77.0); PLATELET COUNT 544 10^3/UL (140-415); RED BLOOD COUNT 4.66 10^6/ul (4.70-6.10); WHITE BLOOD COUNT 8.6 10^3/ul (4.8-10.8)
[2017-08-01 08:12] LABS: ALBUMIN 3.6 g/dl (3.3-4.9); ALBUMIN/GLOBULIN RATIO 0.9; BILIRUBIN,INDIRECT 0.2 mg/dl (0-1.1); BILIRUBIN,TOTAL 0.2 mg/dl (0.2-1.3); CALCIUM 9.5 mg/dl (8.4-10.2); CREATININE 0.49 mg/dl (0.61-1.24); POTASSIUM 3.4 mmol/L (3.5-5.1); TOTAL PROTEIN 7.6 g/dl (6.1-8.1)
[2017-08-01] MEDS: LEVETIRACETAM (100 MG/ML) 5ML CUP GTB SCH ×2 (09:13→20:23)
[2017-08-01] MEDS: OXCARBAZEPINE SUSP 60 MG/ML (PO SYG) GTB SCH ×2 (09:13→20:33)
[2017-08-01] MEDS: ENOXAPARIN 30 MG/0.3 ML SYG SC SCH (09:16)
[2017-08-01] MEDS: CEFEPIME 2GM/50 ML (PMX) 50 ML IVPB SCH ×2 (09:21→20:23)
--- NOTE | 2017-08-01 11:35 | CONS ---
Date/Time of Note Date/Time of Note DATE: 08/01/17 TIME: 11:30 Assessment/Plan Assessment/Plan Additional Assessment/Plan Chest x-ray and CT scan chest were reviewed which are showing what appears to be pleural effusion on the right side. Right lower lobe is showing evidence of lung entrapment. Assessment and recommendations; 1. Patient admitted with pneumonia possibly acute on chronic. 2. Chronic appearing pleural effusion with loculation now. With trapped lung. 3. Cerebral palsy with history of hydrocephalus and profound mental unresponsiveness. Continue current treatment. Patient will need thoracic intervention. Will need decortication. Discussion needs to take place with the family about this. Consultation Date/Type/Reason Admit Date/Time Date of Consultation: Aug 01, 2017 Type of Consultation: Pulmonary Reason for Consultation Pulmonary consultation requested for evaluation of pneumonia. History of presenting illness; patient is a young 31-year-old male who was admitted on the of this month transferred over from [place] [facility] with complaints of fever. Upon evaluation a chest x-ray and CT chest were done which are showing what appears to be loculated right pleural effusion with right lower lobe pneumonia. Due to cerebral palsy is unresponsive and is unable to give any history whatsoever. History was obtained from medical records. By the time I saw the patient the patient appeared comfortable and did not appear to be in any distress. Next Past medical history; 1. Patient with history of cerebral palsy. Status post multiple cranial surgeries. 2. History of hydrocephalus, status post TEXTILE EXAMINER shunt placement. 3. History of Killian tejas placement. 4. History of seizure disorder. 5. History of pneumonia. 6. History of G-tube placement. Medications; reviewed. Allergies; are multiple as outlined above. Social history; not available. Family history not available. Review of systems; unable to be obtained. General exam; young male, somewhat awake but unresponsive to any commands. Currently in no distress. Social History Alcohol Use: none Smoking Status: Never smoker Drug Use: none Exam/Review of Systems Vital Signs Vitals Vital Signs Date Time Temp Pulse Resp B/P Pulse Ox O2 Delivery O2 Flow Rate FiO2 08/01/17 11:29 98.0 100 18 84/56 96 07/31/17 08:30 Nasal Cannula 3.0 Intake and Output 07/31/17 07/31/17 08/01/17 15:00 23:00 07:00 Intake Total 930 ml 730 ml Output Total 1000 ml 700 ml Balance -70 ml 30 ml Exam HEENT exam; supple neck, no JVD. Multiple scars are present on the scalp. Neck masses. No thyromegaly. Chest exam; diminished breath sounds bilaterally. S1-S2 audible, no murmurs. Regular rhythm. Abdomen exam; soft, no organomegaly. Bowel sounds audible. G-tube in place. Extremity exam; no peripheral edema. Patient does have contractures involving all 4 extremities. 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 Results Result Diagram: 08/01/17 0635 08/01/17 0635 Results 24 hrs Laboratory Tests Test 08/01/17 06:35 White Blood Count 8.6 Red Blood Count 4.66 L Hemoglobin 12.8 L Hematocrit 39.4 L Mean Corpuscular Volume 84.5 Mean Corpuscular Hemoglobin 27.5 L Mean Corpuscular Hemoglobin Concent 32.5 Red Cell Distribution Width 13.0 Platelet Count 544 H Mean Platelet Volume 10.2 Neutrophils % 60.8 Lymphocytes % 24.9 Monocytes % 10.7 Eosinophils % 2.6 Basophils % 0.7 Nucleated Red Blood Cells % 0.0 Neutrophils # (Manual) 5.2 Lymphocytes # 2.1 Monocytes # 0.9 Eosinophils # 0.2 Basophils # 0.1 Nucleated Red Blood Cells # 0.0 Sodium Level 138 Potassium Level 3.4 L Chloride Level 100 Carbon Dioxide Level 28 Anion Gap 13 Blood Urea Nitrogen 7 Creatinine 0.49 L Glucose Level 133 Calcium Level 9.5 Total Bilirubin 0.2 Direct Bilirubin 0.00 Indirect Bilirubin 0.2 Aspartate Amino Transf (AST/SGOT) 65 H Alanine Aminotransferase (ALT/SGPT) 103 H Alkaline Phosphatase 385 H Total Protein 7.6 Albumin 3.6 Globulin 4.00 H Albumin/Globulin Ratio 0.90 Medications Medications Current Medications Cefepime HCl (Maxipime 2gm/50 ml (Pmx)) 50 ml @ 100 mls/hr Q12 IVPB Last administered on 08/01/17 09:21; Admin Dose 100 MLS/HR; Start 07/30/17 at 15:00 ; Status Future hold Enoxaparin Sodium (Lovenox) 30 mg DAILY SC Last administered on 08/01/17 09:16 ; Admin Dose 30 MG; Start 07/31/17 at 09:00 Levetiracetam 1000 mg 1,000 mg BID GTB Last administered on 08/01/17 09:13; Admin Dose 1,000 MG; Start 07/30/17 at 15:15 Daptomycin/Sodium Chloride (Cubicin/NS) 100 ml @ 200 mls/hr Q24H IVPB Last administered on 07/31/17 17:02; Admin Dose 200 MLS/HR; Start 07/30/17 at 16:30 Oxcarbazepine 300 mg 300 mg BID GTB Last administered on 08/01/17 09:13; Admin Dose 300 MG; Start 07/31/17 at 21:00 Potassium Chloride (KCl 40 MEQ/250 ML NS) 250 ml @ 62.5 mls/hr ONCE ONCE IVPB ; Start 08/01/17 at 12:00; Stop 08/01/17 at 15:59 BRIJESH GARCIA Aug 01, 2017 11:35
[2017-08-01] MEDS ORDERED: POTASSIUM CHLORIDE 250 ML IVPB ONE (12:00)
--- NOTE | 2017-08-01 17:08 | PN ---
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, recent admission for HCAP who presents with sepsis, likely 2/2 pneumonia Sepsis likely 2/2 pneumonia: -Continue cefepime, DC daptomycin - Has been adequately fluid resuscitated -CT chest shows loculated right pleural fluid accumulation, pulmonology consultation appreciated, patient will need decortication -Blood cultures negative Epilepsy - Continue keppra 1000 BID and oxcarbazepine 300 BID Tube feeds LMWH for ppx Problems: Subjective 24 Hr Interval Summary Subjective hx not possible: pt non-verbal Exam/Review of Systems Vital Signs Vitals Vital Signs Date Time Temp Pulse Resp B/P Pulse Ox O2 Delivery O2 Flow Rate FiO2 08/01/17 16:30 90 08/01/17 15:48 97.9 19 121/70 98 07/31/17 08:30 Nasal Cannula 3.0 Intake and Output 07/31/17 07/31/17 08/01/17 15:00 23:00 07:00 Intake Total 930 ml 730 ml Output Total 1000 ml 700 ml Balance -70 ml 30 ml Exam Constitutional: non-verbal Respiratory: clear to auscultation Cardiovascular: regular rate and rhythm Gastrointestinal: soft, No distended Musculoskeletal: nl extremities to inspection Results Result Diagram: 08/01/17 0635 08/01/17 0635 Results 24 hrs Laboratory Tests Test 08/01/17 06:35 White Blood Count 8.6 Red Blood Count 4.66 L Hemoglobin 12.8 L Hematocrit 39.4 L Mean Corpuscular Volume 84.5 Mean Corpuscular Hemoglobin 27.5 L Mean Corpuscular Hemoglobin Concent 32.5 Red Cell Distribution Width 13.0 Platelet Count 544 H Mean Platelet Volume 10.2 Neutrophils % 60.8 Lymphocytes % 24.9 Monocytes % 10.7 Eosinophils % 2.6 Basophils % 0.7 Nucleated Red Blood Cells % 0.0 Neutrophils # (Manual) 5.2 Lymphocytes # 2.1 Monocytes # 0.9 Eosinophils # 0.2 Basophils # 0.1 Nucleated Red Blood Cells # 0.0 Sodium Level 138 Potassium Level 3.4 L Chloride Level 100 Carbon Dioxide Level 28 Anion Gap 13 Blood Urea Nitrogen 7 Creatinine 0.49 L Glucose Level 133 Calcium Level 9.5 Total Bilirubin 0.2 Direct Bilirubin 0.00 Indirect Bilirubin 0.2 Aspartate Amino Transf (AST/SGOT) 65 H Alanine Aminotransferase (ALT/SGPT) 103 H Alkaline Phosphatase 385 H Total Protein 7.6 Albumin 3.6 Globulin 4.00 H Albumin/Globulin Ratio 0.90 Medications Medications Current Medications Cefepime HCl (Maxipime 2gm/50 ml (Pmx)) 50 ml @ 100 mls/hr Q12 IVPB Last administered on 08/01/17 09:21; Admin Dose 100 MLS/HR; Start 07/30/17 at 15:00 ; Status Future hold Enoxaparin Sodium (Lovenox) 30 mg DAILY SC Last administered on 08/01/17 09:16 ; Admin Dose 30 MG; Start 07/31/17 at 09:00 Levetiracetam (Keppra Liquid) 1,000 mg BID GTB Last administered on 08/01/17 09:13; Admin Dose 1,000 MG; Start 07/30/17 at 15:15 Oxcarbazepine (Trileptal Susp (Ped)) 300 mg BID GTB Last administered on 09:13; Admin Dose 300 MG; Start 07/31/17 at 21:00 OZZY CORNEJO Aug 01, 2017 17:08
[2017-08-01] MEDS ORDERED: DIPHENHYDRAMINE 50 MG INJ IM PRN (19:00)
[2017-08-01] MEDS ORDERED: LORAZEPAM 2 MG INJ IV PRN (19:00)
[2017-08-01] MEDS ORDERED: ACETAMINOPHEN 650MG/20.3ML CUP GTB PRN (19:00)
[2017-08-02] VITALS (13 sets, daily range): BP systolic 87–105; BP diastolic 56–74; PULSE 86–130; RESP 15–20
[2017-08-02 07:06] LABS: BASOPHILS % 0.5 % (0.0-2.0); EOSINOPHILS # 0.3 10^3/ul (0.0-0.5); HEMATOCRIT 40.1 % (42.0-52.0); HEMOGLOBIN 13.1 g/dl (14.0-18.0); LYMPHOCYTES # 1.8 10^3/ul (0.8-2.9); LYMPHOCYTES % 23.5 % (15.0-51.0); MEAN CORPUSCULAR HEMOGLOBIN 27.5 pg (29.0-33.0); MEAN CORPUSCULAR HGB CONC 32.7 g/dl (32.0-37.0); MEAN CORPUSCULAR VOLUME 84.1 fl (82.0-101.0); MEAN PLATELET VOLUME 9.7 fl (7.4-10.4); MONOCYTE # 0.9 10^3/ul (0.3-0.9); MONOCYTES % 11.6 % (0.0-11.0); PLATELET COUNT 604 10^3/UL (140-415); RED BLOOD COUNT 4.77 10^6/ul (4.70-6.10); RED CELL DISTRIBUTION WIDTH 12.5 % (11.5-14.5); WHITE BLOOD COUNT 7.6 10^3/ul (4.8-10.8)
[2017-08-02 07:36] LABS: ALBUMIN 3.8 g/dl (3.3-4.9); ALBUMIN/GLOBULIN RATIO 0.92; BILIRUBIN,INDIRECT 0.1 mg/dl (0-1.1); BILIRUBIN,TOTAL 0.1 mg/dl (0.2-1.3); CALCIUM 9.7 mg/dl (8.4-10.2); CREATININE 0.56 mg/dl (0.61-1.24); POTASSIUM 3.8 mmol/L (3.5-5.1); TOTAL PROTEIN 7.9 g/dl (6.1-8.1)
[2017-08-02] MEDS: CEFEPIME 2GM/50 ML (PMX) 50 ML IVPB SCH (09:00)
--- NOTE | 2017-08-02 09:30 | CONS ---
Date/Time of Note Date/Time of Note DATE: 08/02/17 TIME: 09:28 Assessment/Plan Assessment/Plan Additional Assessment/Plan Assessment recommendations; 1. Patient admitted with pneumonia possibly acute on chronic with loculated pleural effusion on the right side with lung entrapment. 2. Profound mental unresponsiveness due to cerebral palsy. 3. History of hydrocephalus. 4. History of seizure disorder. Continue current treatment. Obtain thoracic surgery consult. May need decortication of the right lung. Consultation Date/Type/Reason Admit Date/Time Jul 30, 2017 at 14:31 Initial Consult Date 08/01/17 Type of Consultation: Pulmonary 24 HR Interval Summary Free Text/Dictation Patient's condition is stable. Remains unresponsive due to underlying severe cerebral palsy. Has remained hemodynamically stable. General exam; young male, unresponsive. Currently in no distress. Exam/Review of Systems Vital Signs Vitals Vital Signs Date Time Temp Pulse Resp B/P Pulse Ox O2 Delivery O2 Flow Rate FiO2 08/02/17 09:15 105 08/02/17 07:47 98.7 19 87/69 95 07/31/17 08:30 Nasal Cannula 3.0 Intake and Output 08/01/17 08/01/17 08/02/17 14:59 22:59 06:59 Intake Total 50 ml 780 ml 680 ml Output Total 500 ml 650 ml Balance 50 ml 280 ml 30 ml Exam HEENT exam; supple neck, multiple well-healed cranial scars are present. Patient has multiple carious teeth. Chest exam; diminished breath sounds bilaterally. S1-S2 audible, no murmurs. Regular rhythm. Abdomen exam; soft, G-tube in place. Bowel sounds audible. No organomegaly. Extremity exam; no peripheral edema. Patient does have contractures involving all 4 extremities. 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 Results Result Diagram: 08/02/17 0634 08/02/17 0634 Results 24 hrs Laboratory Tests Test 08/02/17 06:34 White Blood Count 7.6 Red Blood Count 4.77 Hemoglobin 13.1 L Hematocrit 40.1 L Mean Corpuscular Volume 84.1 Mean Corpuscular Hemoglobin 27.5 L Mean Corpuscular Hemoglobin Concent 32.7 Red Cell Distribution Width 12.5 Platelet Count 604 H Mean Platelet Volume 9.7 Neutrophils % 60.0 Lymphocytes % 23.5 Monocytes % 11.6 H Eosinophils % 4.0 Basophils % 0.5 Nucleated Red Blood Cells % 0.0 Neutrophils # (Manual) 4.6 Lymphocytes # 1.8 Monocytes # 0.9 Eosinophils # 0.3 Basophils # 0.0 Nucleated Red Blood Cells # 0.0 Sodium Level 141 Potassium Level 3.8 Chloride Level 104 Carbon Dioxide Level 28 Anion Gap 13 Blood Urea Nitrogen 8 Creatinine 0.56 L Glucose Level 125 Calcium Level 9.7 Magnesium Level 2.3 Total Bilirubin 0.1 L Direct Bilirubin 0.00 Indirect Bilirubin 0.1 Aspartate Amino Transf (AST/SGOT) 66 H Alanine Aminotransferase (ALT/SGPT) 117 H Alkaline Phosphatase 406 H Total Protein 7.9 Albumin 3.8 Globulin 4.10 H Albumin/Globulin Ratio 0.92 Medications Medications Current Medications Cefepime HCl (Maxipime 2gm/50 ml (Pmx)) 50 ml @ 100 mls/hr Q12 IVPB Last administered on 08/01/17 20:23; Admin Dose 100 MLS/HR; Start 07/30/17 at 15:00 ; Status Future hold Enoxaparin Sodium (Lovenox) 30 mg DAILY SC Last administered on 08/01/17 09:16 ; Admin Dose 30 MG; Start 07/31/17 at 09:00 Levetiracetam (Keppra Liquid) 1,000 mg BID GTB Last administered on 08/01/17 20:23; Admin Dose 1,000 MG; Start 07/30/17 at 15:15 Oxcarbazepine (Trileptal Susp (Ped)) 300 mg BID GTB Last administered on 20:33; Admin Dose 300 MG; Start 07/31/17 at 21:00 Acetaminophen (Tylenol Liquid) 650 mg Q6H PRN GTB PAIN AND OR ELEVATED TEMP; Start 08/01/17 at 19:00 Diphenhydramine HCl (Benadryl) 25 mg Q6H PRN IM ITCHING Last administered on 00:35; Admin Dose 25 MG; Start 08/01/17 at 19:00 Lorazepam (Ativan) 1 mg Q1M PRN IV SEIZURES; Start 08/01/17 at 19:00 BRIJESH GARCAI Aug 02, 2017 09:30
[2017-08-02] MEDS: OXCARBAZEPINE SUSP 60 MG/ML (PO SYG) GTB SCH ×2 (09:35→20:34)
[2017-08-02] MEDS: LEVETIRACETAM (100 MG/ML) 5ML CUP GTB SCH ×2 (09:35→20:34)
[2017-08-02] MEDS: ENOXAPARIN 30 MG/0.3 ML SYG SC SCH (09:36)
[2017-08-02] MEDS: DIPHENHYDRAMINE 50 MG INJ IV PRN (16:55)
--- NOTE | 2017-08-02 17:53 | PN ---
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, recent admission for HCAP who presents with sepsis, likely 2/2 pneumonia Sepsis likely 2/2 pneumonia: -Continue cefepime, DC daptomycin - Has been adequately fluid resuscitated -CT chest shows loculated right pleural fluid accumulation, pulmonology consultation appreciated, patient will need decortication -Blood cultures negative Epilepsy - Continue keppra 1000 BID and oxcarbazepine 300 BID Tube feeds Allergic drug reaction DC antibiotics, Benadryl as needed LMWH for ppx Problems: Subjective 24 Hr Interval Summary Subjective hx not possible: pt non-verbal Exam/Review of Systems Vital Signs Vitals Vital Signs Date Time Temp Pulse Resp B/P Pulse Ox O2 Delivery O2 Flow Rate FiO2 08/02/17 16:17 98 08/02/17 15:49 97.9 20 104/74 94 07/31/17 08:30 Nasal Cannula 3.0 Intake and Output 08/01/17 08/01/17 08/02/17 15:00 23:00 07:00 Intake Total 50 ml 780 ml 680 ml Output Total 500 ml 650 ml Balance 50 ml 280 ml 30 ml Exam Constitutional: non-verbal Respiratory: clear to auscultation Cardiovascular: regular rate and rhythm Gastrointestinal: soft, No distended Musculoskeletal: nl extremities to inspection Results Result Diagram: 08/02/17 0634 08/02/17 0634 Results 24 hrs Laboratory Tests Test 08/02/17 06:34 White Blood Count 7.6 Red Blood Count 4.77 Hemoglobin 13.1 L Hematocrit 40.1 L Mean Corpuscular Volume 84.1 Mean Corpuscular Hemoglobin 27.5 L Mean Corpuscular Hemoglobin Concent 32.7 Red Cell Distribution Width 12.5 Platelet Count 604 H Mean Platelet Volume 9.7 Neutrophils % 60.0 Lymphocytes % 23.5 Monocytes % 11.6 H Eosinophils % 4.0 Basophils % 0.5 Nucleated Red Blood Cells % 0.0 Neutrophils # (Manual) 4.6 Lymphocytes # 1.8 Monocytes # 0.9 Eosinophils # 0.3 Basophils # 0.0 Nucleated Red Blood Cells # 0.0 Sodium Level 141 Potassium Level 3.8 Chloride Level 104 Carbon Dioxide Level 28 Anion Gap 13 Blood Urea Nitrogen 8 Creatinine 0.56 L Glucose Level 125 Calcium Level 9.7 Magnesium Level 2.3 Total Bilirubin 0.1 L Direct Bilirubin 0.00 Indirect Bilirubin 0.1 Aspartate Amino Transf (AST/SGOT) 66 H Alanine Aminotransferase (ALT/SGPT) 117 H Alkaline Phosphatase 406 H Total Protein 7.9 Albumin 3.8 Globulin 4.10 H Albumin/Globulin Ratio 0.92 Medications Medications Current Medications Enoxaparin Sodium (Lovenox) 30 mg DAILY SC Last administered on 08/02/17 09:36 ; Admin Dose 30 MG; Start 07/31/17 at 09:00 Levetiracetam (Keppra Liquid) 1,000 mg BID GTB Last administered on 08/02/17 09:35; Admin Dose 1,000 MG; Start 07/30/17 at 15:15 Oxcarbazepine (Trileptal Susp (Ped)) 300 mg BID GTB Last administered on 09:35; Admin Dose 300 MG; Start 07/31/17 at 21:00 Acetaminophen (Tylenol Liquid) 650 mg Q6H PRN GTB PAIN AND OR ELEVATED TEMP; Start 08/01/17 at 19:00 Lorazepam (Ativan) 1 mg Q1M PRN IV SEIZURES; Start 08/01/17 at 19:00 Diphenhydramine HCl (Benadryl) 25 mg Q6H PRN IV ITCHING Last administered on 16:55; Admin Dose 25 MG; Start 08/02/17 at 19:00 OZZY CORNEJO Aug 02, 2017 17:53
[2017-08-03] VITALS (12 sets, daily range): BP systolic 81–126; BP diastolic 57–68; PULSE 92–112; RESP 15–22
[2017-08-03 08:19] LABS: BASOPHIL # 0.1 10^3/ul (0.0-0.1); BASOPHILS % 0.7 % (0.0-2.0); EOSINOPHILS # 0.5 10^3/ul (0.0-0.5); EOSINOPHILS % 6.7 % (0.0-7.0); HEMATOCRIT 41.6 % (42.0-52.0); HEMOGLOBIN 13.6 g/dl (14.0-18.0); LYMPHOCYTES % 30.3 % (15.0-51.0); MEAN CORPUSCULAR HEMOGLOBIN 27.5 pg (29.0-33.0); MEAN CORPUSCULAR HGB CONC 32.7 g/dl (32.0-37.0); MEAN PLATELET VOLUME 10.1 fl (7.4-10.4); MONOCYTE # 0.9 10^3/ul (0.3-0.9); MONOCYTES % 12.8 % (0.0-11.0); NEUTROPHIL # 3.3 10^3/ul (1.6-7.5); NEUTROPHILS % 49.2 % (39.0-77.0); PLATELET COUNT 603 10^3/UL (140-415); RED BLOOD COUNT 4.95 10^6/ul (4.70-6.10); RED CELL DISTRIBUTION WIDTH 12.5 % (11.5-14.5); WHITE BLOOD COUNT 6.7 10^3/ul (4.8-10.8)
[2017-08-03 08:34] LABS: CREATININE 0.55 mg/dl (0.61-1.24); POTASSIUM 3.7 mmol/L (3.5-5.1)
[2017-08-03] MEDS: OXCARBAZEPINE SUSP 60 MG/ML (PO SYG) GTB SCH ×2 (08:44→20:26)
[2017-08-03] MEDS: LEVETIRACETAM (100 MG/ML) 5ML CUP GTB SCH ×2 (08:44→20:26)
[2017-08-03] MEDS: ENOXAPARIN 30 MG/0.3 ML SYG SC SCH (08:46)
--- NOTE | 2017-08-03 11:00 | CONS ---
Date/Time of Note Date/Time of Note DATE: 08/03/17 TIME: 10:58 Assessment/Plan Assessment/Plan Additional Assessment/Plan Assessment recommendations; 1. Patient with history of cerebral palsy and profound mental retardation admitted for extensive right-sided pneumonia which likely is acute on chronic with loculated pleural effusion with lung entrapment. 2. Stable seizure disorder. Continue current treatment. Patient will need decortication of right lung. Consultation Date/Type/Reason Admit Date/Time Jul 30, 2017 at 14:31 Initial Consult Date 08/01/17 Type of Consultation: Pulmonary 24 HR Interval Summary Free Text/Dictation Patient condition remains stable. Remains awake but unresponsive to any commands. Has remained hemodynamically stable. No seizures reported. General exam; young male, awake but unresponsive to any commands. Currently in no distress. Exam/Review of Systems Vital Signs Vitals Vital Signs Date Time Temp Pulse Resp B/P Pulse Ox O2 Delivery O2 Flow Rate FiO2 08/03/17 08:48 110 08/03/17 07:23 98.7 21 87/62 91 07/31/17 08:30 Nasal Cannula 3.0 Intake and Output 08/02/17 08/02/17 08/03/17 15:00 23:00 07:00 Intake Total 600 ml Output Total 650 ml Balance -50 ml Exam HEENT exam; supple neck, no JVD. No lymphadenopathy. Midline trachea. No thyromegaly. Multiple cranial scars are present. Chest exam; diminished breath sounds right lung. Left lung is fairly clear. S1 -S2 audible, no murmurs. Regular rhythm. Abdomen exam; soft, no organomegaly. Bowel sounds audible. Extremity exam; no peripheral edema. Patient does have contractures involving all 4 extremities. 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 Results Result Diagram: 08/03/1714 08/03/1714 Results 24 hrs Laboratory Tests Test 08/03/17 07:14 White Blood Count 6.7 Red Blood Count 4.95 Hemoglobin 13.6 L Hematocrit 41.6 L Mean Corpuscular Volume 84.0 Mean Corpuscular Hemoglobin 27.5 L Mean Corpuscular Hemoglobin Concent 32.7 Red Cell Distribution Width 12.5 Platelet Count 603 H Mean Platelet Volume 10.1 Neutrophils % 49.2 Lymphocytes % 30.3 Monocytes % 12.8 H Eosinophils % 6.7 Basophils % 0.7 Nucleated Red Blood Cells % 0.0 Neutrophils # 3.3 Lymphocytes # 2.0 Monocytes # 0.9 Eosinophils # 0.5 Basophils # 0.1 Nucleated Red Blood Cells # 0.0 Sodium Level 141 Potassium Level 3.7 Chloride Level 102 Carbon Dioxide Level 28 Anion Gap 15 Blood Urea Nitrogen 8 Creatinine 0.55 L Glucose Level 127 Calcium Level 10.0 Medications Medications Current Medications Enoxaparin Sodium (Lovenox) 30 mg DAILY SC Last administered on 08/03/17 08:46 ; Admin Dose 30 MG; Start 07/31/17 at 09:00 Levetiracetam (Keppra Liquid) 1,000 mg BID GTB Last administered on 08/03/17 08:44; Admin Dose 1,000 MG; Start 07/30/17 at 15:15 Oxcarbazepine (Trileptal Susp (Ped)) 300 mg BID GTB Last administered on 08:44; Admin Dose 300 MG; Start 07/31/17 at 21:00 Acetaminophen (Tylenol Liquid) 650 mg Q6H PRN GTB PAIN AND OR ELEVATED TEMP; Start 08/01/17 at 19:00 Lorazepam (Ativan) 1 mg Q1M PRN IV SEIZURES; Start 08/01/17 at 19:00 Diphenhydramine HCl (Benadryl) 25 mg Q6H PRN IV ITCHING Last administered on 16:55; Admin Dose 25 MG; Start 08/02/17 at 19:00 BRIJESH GARCIA Aug 03, 2017 11:00
--- NOTE | 2017-08-03 15:18 | PN ---
Date/Time of Note Date/Time of Note DATE: 08/03/17 TIME: 15:10 Assessment/Plan VTE Prophylaxis VTE Prophylaxis Intervention: LMWH Lines/Catheters IV Catheter Type (from Nrs): Saline Lock Assessment/Plan Chief Complaint/Hosp Course 31 yo male with h/o cerebral palsy, epilepsy, INSTALLERS MECHANICAL shunt for hydrocephalus, recent admission for HCAP who presents with sepsis, likely 2/2 pneumonia Sepsis likely 2/2 pneumonia: Improved -DC antibiotics patient appears to have had a drug allergy to cefepime - Has been adequately fluid resuscitated -CT chest shows loculated right pleural fluid accumulation but this be secondary to shunt placement, according to mother patient was recently altered such that the fluid deposits into the lungs as apparently it was not working when it was being placed into the stomach, discussed with pulmonology and will cancel pulmonary decortication -Patient will need to follow-up with his neurosurgeon upon DC -Blood cultures negative Congenital disorder with history of epilepsy and INSTALLERS MECHANICAL shunt placement - Continue keppra 1000 BID and oxcarbazepine 300 BID -Obtain CT head to rule out hydrocephalus, will need to follow-up with neurosurgeon at [facility] who placed the shunt Nutrition Continue tube feeds Allergic drug reaction likely to cefepime DC'd antibiotics, Benadryl as needed LMWH for ppx Discharge planning: Likely DC tomorrow Problems: Subjective 24 Hr Interval Summary Subjective hx not possible: pt non-verbal Exam/Review of Systems Vital Signs Vitals Vital Signs Date Time Temp Pulse Resp B/P Pulse Ox O2 Delivery O2 Flow Rate FiO2 08/03/17 12:15 98.6 115 19 126/68 95 07/31/17 08:30 Nasal Cannula 3.0 Intake and Output 08/02/17 08/02/17 08/03/17 15:00 23:00 07:00 Intake Total 600 ml Output Total 650 ml Balance -50 ml Exam Constitutional: non-verbal Respiratory: clear to auscultation Cardiovascular: regular rate and rhythm Gastrointestinal: soft, No distended Musculoskeletal: nl extremities to inspection Results Result Diagram: 08/03/1714 08/03/1714 Results 24 hrs Laboratory Tests Test 08/03/17 07:14 White Blood Count 6.7 Red Blood Count 4.95 Hemoglobin 13.6 L Hematocrit 41.6 L Mean Corpuscular Volume 84.0 Mean Corpuscular Hemoglobin 27.5 L Mean Corpuscular Hemoglobin Concent 32.7 Red Cell Distribution Width 12.5 Platelet Count 603 H Mean Platelet Volume 10.1 Neutrophils % 49.2 Lymphocytes % 30.3 Monocytes % 12.8 H Eosinophils % 6.7 Basophils % 0.7 Nucleated Red Blood Cells % 0.0 Neutrophils # 3.3 Lymphocytes # 2.0 Monocytes # 0.9 Eosinophils # 0.5 Basophils # 0.1 Nucleated Red Blood Cells # 0.0 Sodium Level 141 Potassium Level 3.7 Chloride Level 102 Carbon Dioxide Level 28 Anion Gap 15 Blood Urea Nitrogen 8 Creatinine 0.55 L Glucose Level 127 Calcium Level 10.0 Medications Medications Current Medications Enoxaparin Sodium (Lovenox) 30 mg DAILY SC Last administered on 08/03/17 08:46 ; Admin Dose 30 MG; Start 07/31/17 at 09:00 Levetiracetam (Keppra Liquid) 1,000 mg BID GTB Last administered on 08/03/17 08:44; Admin Dose 1,000 MG; Start 07/30/17 at 15:15 Oxcarbazepine (Trileptal Susp (Ped)) 300 mg BID GTB Last administered on 08:44; Admin Dose 300 MG; Start 07/31/17 at 21:00 Acetaminophen (Tylenol Liquid) 650 mg Q6H PRN GTB PAIN AND OR ELEVATED TEMP; Start 08/01/17 at 19:00 Lorazepam (Ativan) 1 mg Q1M PRN IV SEIZURES; Start 08/01/17 at 19:00 Diphenhydramine HCl (Benadryl) 25 mg Q6H PRN IV ITCHING Last administered on 16:55; Admin Dose 25 MG; Start 08/02/17 at 19:00 OZZY CORNEJO Aug 03, 2017 15:18
--- NOTE | 2017-08-03 19:45 | RADRPT ---
PROCEDURE: CT Head without. CLINICAL INDICATION: Evaluate hydrocephalus. TECHNIQUE: The study was performed utilizing a multi-slice, multidetector CT scanner. Direct spira l 1 mm axial sections were obtained through the head without the use of intravenous contrast materia l. 1 or more of the following dose reduction techniques were utilized: Automated exposure control, adjustment of the mA and/or kV according to patient's size, iterative reconstruction technique. Co scott and sagittal reformations were obtained. The images were reviewed on a PACS workstation. RADIATION DOSE: CTDIvol: 45.0 mGyDLP: 810.3 mGy-cm COMPARISON: 03/16/2016, 10/05/2015 FINDINGS: There is redemonstration of right parietal approach ventriculostomy, with tip near the frontal horn of the left lateral ventricle. There is also stable appearance of second right parietal approach live triculostomy with tip in the medial right occipital lobe, traversing the occipital horn of the right lateral ventricle. Compared to the prior examination on 03/16/2016, the ventricles are decreased in size. There is persistent severe volume loss involving the bilateral medial temporal lobes, as well as moderate volume loss involving the occipital lobes bilaterally. There is persistent hypodensity involving the inferior aspect of the bilateral occipital lobes, right worse than left. There is no d efinite transependymal CSF migration at this time. There is redemonstration of coarse calcifications along the bilateral cerebellar tentorium. There is persistent subcortical calcifications involving the bilateral cerebral hemispheres, most prominent in the anterior frontal lobes which is nonspecific. There is no intraparenchymal hemorrhage, mass lesion, midline shift or evidence of keily iation. There is persistent diffuse mild hyperostosis of the calvarium, which is otherwise intact. T here is pneumatization of the bilateral petrous apices without evidence of inflammatory changes, nor mal variant. 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 The orbits are otherwise unremarkable. The visualize d paranasal sinuses are normally aerated. IMPRESSION: 1. Redemonstration of 2 right parietal approach ventriculostomy is in stable position compared to t he prior examination. Compared to the prior exam on 03/16/2016, the ventricles are of decreased in s ize, without definite evidence of hydrocephalous or transependymal CSF migration at this time. 2. Stable appearance of diffuse encephalomalacia, most prominent involving the bilateral inferior o ccipital/temporal lobes. 3. Stable appearance of subcortical calcifications throughout the bilateral cerebral hemispheres, m ost prominent in the anterior frontal lobes. 4. No intraparenchymal hemorrhage, mass lesion or midline shift. RPTAT: HGAS .Donnie Segal MD, Date Time Electronically viewed and signed by .Donnie Segal MD, on 08/03/2017 19:45 .S/
[2017-08-03] MEDS: DIPHENHYDRAMINE 50 MG INJ IV PRN (20:37)
[2017-08-04] VITALS (11 sets, daily range): BP systolic 93–98; BP diastolic 63–66; PULSE 77–112; RESP 16–20
[2017-08-04 07:47] LABS: BASOPHIL # 0.1 10^3/ul (0.0-0.1); BASOPHILS % 0.8 % (0.0-2.0); EOSINOPHILS # 0.5 10^3/ul (0.0-0.5); EOSINOPHILS % 6.1 % (0.0-7.0); HEMATOCRIT 43.6 % (42.0-52.0); LYMPHOCYTES # 2.3 10^3/ul (0.8-2.9); LYMPHOCYTES % 29.4 % (15.0-51.0); MEAN CORPUSCULAR HEMOGLOBIN 27.2 pg (29.0-33.0); MEAN CORPUSCULAR HGB CONC 32.1 g/dl (32.0-37.0); MEAN CORPUSCULAR VOLUME 84.8 fl (82.0-101.0); MEAN PLATELET VOLUME 10.1 fl (7.4-10.4); MONOCYTES % 12.2 % (0.0-11.0); PLATELET COUNT 556 10^3/UL (140-415); RED BLOOD COUNT 5.14 10^6/ul (4.70-6.10); RED CELL DISTRIBUTION WIDTH 12.8 % (11.5-14.5); WHITE BLOOD COUNT 7.8 10^3/ul (4.8-10.8)
[2017-08-04 08:15] LABS: CALCIUM 10.2 mg/dl (8.4-10.2); CREATININE 0.64 mg/dl (0.61-1.24); POTASSIUM 3.7 mmol/L (3.5-5.1)
[2017-08-04] MEDS: ENOXAPARIN 30 MG/0.3 ML SYG SC SCH (09:02)
[2017-08-04] MEDS: OXCARBAZEPINE SUSP 60 MG/ML (PO SYG) GTB SCH ×2 (09:14→21:40)
[2017-08-04] MEDS: LEVETIRACETAM (100 MG/ML) 5ML CUP GTB SCH ×2 (09:14→21:35)
--- NOTE | 2017-08-04 11:42 | CONS ---
Date/Time of Note Date/Time of Note DATE: 08/04/17 TIME: 11:40 Assessment/Plan Assessment/Plan Additional Assessment/Plan Assessment recommendations; 1. Patient admitted with shortness of breath likely due to chronic right lower lobe changes, patient status post BULLARD MACHINE OPERATOR shunt placement with divergent to pleural space per medical record. 2. Cerebral palsy. 3. Stable seizure disorder. Continue current treatment. Further workup will be deferred to [facility] where the patient goes for follow-up. Consider discharge. Consultation Date/Type/Reason Admit Date/Time Jul 30, 2017 at 14:31 Initial Consult Date 08/01/17 Type of Consultation: Pulmonary 24 HR Interval Summary Free Text/Dictation Patient's condition remains stable. No untoward events reported. No overt seizure activity noted. General exam; young male, unresponsive, currently in no distress. Exam/Review of Systems Vital Signs Vitals Vital Signs Date Time Temp Pulse Resp B/P Pulse Ox O2 Delivery O2 Flow Rate FiO2 08/04/17 08:22 102 08/04/17 07:55 98.7 19 98/65 95 07/31/17 08:30 Nasal Cannula 3.0 Intake and Output 08/03/17 08/03/17 08/04/17 15:00 23:00 07:00 Intake Total 820 ml 700 ml Output Total 600 ml 550 ml Balance 220 ml 150 ml Exam HEENT exam; supple neck, no JVD. No lymphadenopathy. Midline trachea. No thyromegaly. Multiple cranial scars are present. Chest exam; diminished breath sounds in right lung. Left lung is clear to auscultation. S1-S2 audible, no murmurs. Regular rhythm. Abdomen exam; soft, no organomegaly. Bowel sounds audible. G-tube in place. Extremity exam; no peripheral edema. 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 Results Result Diagram: 08/04/17 0648 08/04/17 0648 Results 24 hrs Laboratory Tests Test 08/04/17 06:48 White Blood Count 7.8 Red Blood Count 5.14 Hemoglobin 14.0 Hematocrit 43.6 Mean Corpuscular Volume 84.8 Mean Corpuscular Hemoglobin 27.2 L Mean Corpuscular Hemoglobin Concent 32.1 Red Cell Distribution Width 12.8 Platelet Count 556 H Mean Platelet Volume 10.1 Neutrophils % 51.0 Lymphocytes % 29.4 Monocytes % 12.2 H Eosinophils % 6.1 Basophils % 0.8 Nucleated Red Blood Cells % 0.0 Neutrophils # 4.0 Lymphocytes # 2.3 Monocytes # 1.0 H Eosinophils # 0.5 Basophils # 0.1 Nucleated Red Blood Cells # 0.0 Sodium Level 145 H Potassium Level 3.7 Chloride Level 104 Carbon Dioxide Level 30 Anion Gap 15 Blood Urea Nitrogen 11 Creatinine 0.64 Glucose Level 147 Calcium Level 10.2 Medications Medications Current Medications Enoxaparin Sodium (Lovenox) 30 mg DAILY SC Last administered on 08/04/17 09:02 ; Admin Dose 30 MG; Start 07/31/17 at 09:00 Levetiracetam (Keppra Liquid) 1,000 mg BID GTB Last administered on 08/04/17 09:14; Admin Dose 1,000 MG; Start 07/30/17 at 15:15 Oxcarbazepine (Trileptal Susp (Ped)) 300 mg BID GTB Last administered on 09:14; Admin Dose 300 MG; Start 07/31/17 at 21:00 Acetaminophen (Tylenol Liquid) 650 mg Q6H PRN GTB PAIN AND OR ELEVATED TEMP Last administered on 08/04/17 09:18; Admin Dose 650 MG; Start 08/01/17 at 19:00 Lorazepam (Ativan) 1 mg Q1M PRN IV SEIZURES; Start 08/01/17 at 19:00 Diphenhydramine HCl 25 mg 25 mg Q6H PRN IV ITCHING Last administered on 20:37; Admin Dose 25 MG; Start 08/02/17 at 19:00 Dextrose (D5W) 1,000 ml @ 150 mls/hr Q6H40M IV ; Start 08/04/17 at 12:00; Stop 08/04/17 at 18:39 BRIJESH GARCIA Aug 04, 2017 11:42
[2017-08-04] MEDS: DEXTROSE 5% 1,000 ML IV SCH ×2 (12:00→18:28)
--- NOTE | 2017-08-04 18:43 | PN ---
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, recent admission for HCAP who presents with sepsis, likely 2/2 pneumonia Sepsis likely 2/2 pneumonia: Improved -DC antibiotics patient appears to have had a drug allergy to cefepime - Has been adequately fluid resuscitated -CT chest shows loculated right pleural fluid accumulation but this be secondary to shunt placement, according to mother patient was recently altered such that the fluid deposits into the lungs as apparently it was not working when it was being placed into the stomach, discussed with pulmonology and will cancel pulmonary decortication -Patient will need to follow-up with his neurosurgeon upon DC -Blood cultures negative Congenital disorder with history of epilepsy and ADJUNCT INSTRUCTOR shunt placement - Continue keppra 1000 BID and oxcarbazepine 300 BID -CT head shows no hydrocephalus Nutrition Continue tube feeds Allergic drug reaction likely to cefepime DC'd antibiotics, Benadryl as needed Cortisol and nystatin LMWH for ppx Discharge planning: Likely DC tomorrow Problems: Subjective 24 Hr Interval Summary Subjective hx not possible: pt non-verbal Exam/Review of Systems Vital Signs Vitals Vital Signs Date Time Temp Pulse Resp B/P Pulse Ox O2 Delivery O2 Flow Rate FiO2 08/04/17 17:12 77 08/04/17 16:27 98.3 16 93/64 96 07/31/17 08:30 Nasal Cannula 3.0 Intake and Output 08/03/17 08/03/17 08/04/17 15:00 23:00 07:00 Intake Total 820 ml 700 ml Output Total 600 ml 550 ml Balance 220 ml 150 ml Exam Constitutional: non-verbal Respiratory: clear to auscultation Cardiovascular: regular rate and rhythm Gastrointestinal: soft, No distended Musculoskeletal: nl extremities to inspection Results Result Diagram: 08/04/17 0648 08/04/17 0648 Results 24 hrs Laboratory Tests Test 08/04/17 06:48 White Blood Count 7.8 Red Blood Count 5.14 Hemoglobin 14.0 Hematocrit 43.6 Mean Corpuscular Volume 84.8 Mean Corpuscular Hemoglobin 27.2 L Mean Corpuscular Hemoglobin Concent 32.1 Red Cell Distribution Width 12.8 Platelet Count 556 H Mean Platelet Volume 10.1 Neutrophils % 51.0 Lymphocytes % 29.4 Monocytes % 12.2 H Eosinophils % 6.1 Basophils % 0.8 Nucleated Red Blood Cells % 0.0 Neutrophils # 4.0 Lymphocytes # 2.3 Monocytes # 1.0 H Eosinophils # 0.5 Basophils # 0.1 Nucleated Red Blood Cells # 0.0 Sodium Level 145 H Potassium Level 3.7 Chloride Level 104 Carbon Dioxide Level 30 Anion Gap 15 Blood Urea Nitrogen 11 Creatinine 0.64 Glucose Level 147 Calcium Level 10.2 Medications Medications Current Medications Enoxaparin Sodium (Lovenox) 30 mg DAILY SC Last administered on 08/04/17 09:02 ; Admin Dose 30 MG; Start 07/31/17 at 09:00 Levetiracetam (Keppra Liquid) 1,000 mg BID GTB Last administered on 08/04/17 09:14; Admin Dose 1,000 MG; Start 07/30/17 at 15:15 Oxcarbazepine (Trileptal Susp (Ped)) 300 mg BID GTB Last administered on 09:14; Admin Dose 300 MG; Start 07/31/17 at 21:00 Acetaminophen (Tylenol Liquid) 650 mg Q6H PRN GTB PAIN AND OR ELEVATED TEMP Last administered on 08/04/17 09:18; Admin Dose 650 MG; Start 08/01/17 at 19:00 Lorazepam (Ativan) 1 mg Q1M PRN IV SEIZURES; Start 08/01/17 at 19:00 Diphenhydramine HCl (Benadryl) 25 mg Q6H PRN IV ITCHING Last administered on 20:37; Admin Dose 25 MG; Start 08/02/17 at 19:00 OZZY CORNEJO Aug 04, 2017 18:43
[2017-08-04] MEDS: NYSTATIN 15 GM CR TOP SCH (21:35)
[2017-08-04] MEDS: HYDROCORTISONE 0.5% 28.35 GM CR TOP SCH (21:35)
[2017-08-05] VITALS (11 sets, daily range): BP systolic 88–123; BP diastolic 56–76; PULSE 73–97; RESP 16–21
[2017-08-05 07:11] LABS: BASOPHIL # 0.1 10^3/ul (0.0-0.1); BASOPHILS % 0.9 % (0.0-2.0); EOSINOPHILS # 0.6 10^3/ul (0.0-0.5); EOSINOPHILS % 7.6 % (0.0-7.0); HEMOGLOBIN 13.2 g/dl (14.0-18.0); LYMPHOCYTES % 26.3 % (15.0-51.0); MEAN CORPUSCULAR HEMOGLOBIN 27.2 pg (29.0-33.0); MEAN CORPUSCULAR HGB CONC 32.2 g/dl (32.0-37.0); MEAN CORPUSCULAR VOLUME 84.5 fl (82.0-101.0); MEAN PLATELET VOLUME 9.6 fl (7.4-10.4); MONOCYTES % 13.4 % (0.0-11.0); NEUTROPHIL # 3.8 10^3/ul (1.6-7.5); NEUTROPHILS % 51.4 % (39.0-77.0); PLATELET COUNT 467 10^3/UL (140-415); RED BLOOD COUNT 4.85 10^6/ul (4.70-6.10); RED CELL DISTRIBUTION WIDTH 12.7 % (11.5-14.5); WHITE BLOOD COUNT 7.4 10^3/ul (4.8-10.8)
[2017-08-05 07:38] LABS: CALCIUM 9.7 mg/dl (8.4-10.2); CREATININE 0.57 mg/dl (0.61-1.24); POTASSIUM 3.7 mmol/L (3.5-5.1)
[2017-08-05] MEDS: ENOXAPARIN 30 MG/0.3 ML SYG SC SCH (09:16)
[2017-08-05] MEDS: HYDROCORTISONE 0.5% 28.35 GM CR TOP SCH ×2 (09:17→21:05)
[2017-08-05] MEDS: OXCARBAZEPINE SUSP 60 MG/ML (PO SYG) GTB SCH ×2 (09:17→21:09)
[2017-08-05] MEDS: NYSTATIN 15 GM CR TOP SCH ×2 (09:17→21:05)
[2017-08-05] MEDS: LEVETIRACETAM (100 MG/ML) 5ML CUP GTB SCH ×2 (09:17→21:09)
--- NOTE | 2017-08-05 14:38 | PN ---
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, recent admission for HCAP who presents with sepsis, likely 2/2 pneumonia Sepsis likely 2/2 pneumonia: Improved -DC antibiotics patient appears to have had a drug allergy to cefepime - Has been adequately fluid resuscitated -CT chest shows loculated right pleural fluid accumulation but this be secondary to shunt placement, according to mother patient was recently altered such that the fluid deposits into the lungs as apparently it was not working when it was being placed into the stomach, discussed with pulmonology and will cancel pulmonary decortication -Patient will need to follow-up with his neurosurgeon upon DC -Blood cultures negative Congenital disorder with history of epilepsy and LOGGING SHOVEL OPERATOR shunt placement - Continue keppra 1000 BID and oxcarbazepine 300 BID -CT head shows no hydrocephalus Nutrition Continue tube feeds Allergic drug reaction likely to cefepime-improved DC'd antibiotics, Benadryl as needed Cortisol and nystatin LMWH for ppx Discharge planning: Likely DC tomorrow Problems: Subjective 24 Hr Interval Summary Subjective hx not possible: pt non-verbal Exam/Review of Systems Vital Signs Vitals Vital Signs Date Time Temp Pulse Resp B/P Pulse Ox O2 Delivery O2 Flow Rate FiO2 08/05/17 12:14 83 08/05/17 11:51 97.8 16 88/63 95 Intake and Output 08/04/17 08/04/17 08/05/17 15:00 23:00 07:00 Output Total 600 ml Balance -600 ml Exam Constitutional: non-verbal Respiratory: clear to auscultation Cardiovascular: regular rate and rhythm Gastrointestinal: soft, No distended Musculoskeletal: nl extremities to inspection Results Result Diagram: 08/05/17 0649 08/05/17 0654 Results 24 hrs Laboratory Tests Test 08/05/17 06:49 08/05/17 06:54 White Blood Count 7.4 Red Blood Count 4.85 Hemoglobin 13.2 L Hematocrit 41.0 L Mean Corpuscular Volume 84.5 Mean Corpuscular Hemoglobin 27.2 L Mean Corpuscular Hemoglobin Concent 32.2 Red Cell Distribution Width 12.7 Platelet Count 467 H Mean Platelet Volume 9.6 Neutrophils % 51.4 Lymphocytes % 26.3 Monocytes % 13.4 H Eosinophils % 7.6 H Basophils % 0.9 Nucleated Red Blood Cells % 0.0 Neutrophils # 3.8 Lymphocytes # 2.0 Monocytes # 1.0 H Eosinophils # 0.6 H Basophils # 0.1 Nucleated Red Blood Cells # 0.0 Sodium Level 140 Potassium Level 3.7 Chloride Level 101 Carbon Dioxide Level 30 Anion Gap 13 Blood Urea Nitrogen 11 Creatinine 0.57 L Glucose Level 113 Calcium Level 9.7 Medications Medications Current Medications Enoxaparin Sodium (Lovenox) 30 mg DAILY SC Last administered on 08/05/17 09:16 ; Admin Dose 30 MG; Start 07/31/17 at 09:00 Levetiracetam (Keppra Liquid) 1,000 mg BID GTB Last administered on 08/05/17 09:17; Admin Dose 1,000 MG; Start 07/30/17 at 15:15 Oxcarbazepine (Trileptal Susp (Ped)) 300 mg BID GTB Last administered on 09:17; Admin Dose 300 MG; Start 07/31/17 at 21:00 Acetaminophen (Tylenol Liquid) 650 mg Q6H PRN GTB PAIN AND OR ELEVATED TEMP Last administered on 08/04/17 09:18; Admin Dose 650 MG; Start 08/01/17 at 19:00 Lorazepam (Ativan) 1 mg Q1M PRN IV SEIZURES; Start 08/01/17 at 19:00 Diphenhydramine HCl (Benadryl) 25 mg Q6H PRN IV ITCHING Last administered on 20:37; Admin Dose 25 MG; Start 08/02/17 at 19:00 Nystatin (Nystatin Cr) 1 applic BID TOP Last administered on 08/05/17 09:17; Admin Dose 1 APPLIC; Start 08/04/17 at 21:00 Hydrocortisone (Hydrocortisone 0.5% Cr) 1 applic BID TOP Last administered on 09:17; Admin Dose 1 APPLIC; Start 08/04/17 at 21:00 OZZY CORNEJO Aug 05, 2017 14:38
--- NOTE | 2017-08-05 17:50 | CONS ---
Date/Time of Note Date/Time of Note DATE: 08/05/17 TIME: 17:49 Consult Date/Type/Reason Admit Date/Time Jul 30, 2017 at 14:31 Initial Consult Date 08/01/17 Type of Consultation: Pulmonary Subjective No events. Objective Vital Signs Date Time Temp Pulse Resp B/P Pulse Ox O2 Delivery O2 Flow Rate FiO2 08/05/17 16:48 73 08/05/17 16:30 97.6 17 94/64 95 Intake and Output 08/04/17 08/04/17 08/05/17 15:00 23:00 07:00 Output Total 600 ml Balance -600 ml Exam HEENT: Neck supple; no JVD; no LAD CVS: RRR, S1 and S2 CHEST: Clear ABD: Soft, NT, + BS EXT: No c/c/e Results/Medications Result Diagram: 08/05/17 0649 08/05/17 0654 Results 24 hrs Laboratory Tests Test 08/05/17 06:49 08/05/17 06:54 White Blood Count 7.4 Red Blood Count 4.85 Hemoglobin 13.2 L Hematocrit 41.0 L Mean Corpuscular Volume 84.5 Mean Corpuscular Hemoglobin 27.2 L Mean Corpuscular Hemoglobin Concent 32.2 Red Cell Distribution Width 12.7 Platelet Count 467 H Mean Platelet Volume 9.6 Neutrophils % 51.4 Lymphocytes % 26.3 Monocytes % 13.4 H Eosinophils % 7.6 H Basophils % 0.9 Nucleated Red Blood Cells % 0.0 Neutrophils # 3.8 Lymphocytes # 2.0 Monocytes # 1.0 H Eosinophils # 0.6 H Basophils # 0.1 Nucleated Red Blood Cells # 0.0 Sodium Level 140 Potassium Level 3.7 Chloride Level 101 Carbon Dioxide Level 30 Anion Gap 13 Blood Urea Nitrogen 11 Creatinine 0.57 L Glucose Level 113 Calcium Level 9.7 Medications Current Medications Enoxaparin Sodium (Lovenox) 30 mg DAILY SC Last administered on 08/05/17 09:16 ; Admin Dose 30 MG; Start 07/31/17 at 09:00 Levetiracetam (Keppra Liquid) 1,000 mg BID GTB Last administered on 08/05/17 09:17; Admin Dose 1,000 MG; Start 07/30/17 at 15:15 Oxcarbazepine (Trileptal Susp (Ped)) 300 mg BID GTB Last administered on 09:17; Admin Dose 300 MG; Start 07/31/17 at 21:00 Acetaminophen (Tylenol Liquid) 650 mg Q6H PRN GTB PAIN AND OR ELEVATED TEMP Last administered on 08/04/17 09:18; Admin Dose 650 MG; Start 08/01/17 at 19:00 Lorazepam (Ativan) 1 mg Q1M PRN IV SEIZURES; Start 08/01/17 at 19:00 Diphenhydramine HCl (Benadryl) 25 mg Q6H PRN IV ITCHING Last administered on 20:37; Admin Dose 25 MG; Start 08/02/17 at 19:00 Nystatin (Nystatin Cr) 1 applic BID TOP Last administered on 08/05/17 09:17; Admin Dose 1 APPLIC; Start 08/04/17 at 21:00 Hydrocortisone (Hydrocortisone 0.5% Cr) 1 applic BID TOP Last administered on 09:17; Admin Dose 1 APPLIC; Start 08/04/17 at 21:00 Assessment/Plan Additional Assessment/Plan IMP: 1. Sepsis likely 2/2 pneumonia: Improved 2. Congenital disorder with history of epilepsy and MANAGER RECRUITING shunt placement RECS: 1. Agree with D/C RENÉE Barger MD Aug 05, 2017 17:50
[2017-08-06] VITALS (12 sets, daily range): BP systolic 90–110; BP diastolic 62–74; PULSE 85–95; RESP 15–20
[2017-08-06] MEDS: OXCARBAZEPINE SUSP 60 MG/ML (PO SYG) GTB SCH ×2 (09:23→22:21)
[2017-08-06] MEDS: ENOXAPARIN 30 MG/0.3 ML SYG SC SCH (09:23)
[2017-08-06] MEDS: LEVETIRACETAM (100 MG/ML) 5ML CUP GTB SCH ×2 (09:23→21:24)
[2017-08-06] MEDS: HYDROCORTISONE 0.5% 28.35 GM CR TOP SCH ×2 (09:26→21:24)
[2017-08-06] MEDS: NYSTATIN 15 GM CR TOP SCH ×2 (09:26→21:24)
[2017-08-06] MEDS ORDERED: NYST15CR28 TOP (16:20)
[2017-08-06] MEDS ORDERED: HYDR28.340 TOP (16:20)
--- NOTE | 2017-08-06 16:21 | PDOCDIS ---
Discharge Instructions CONDITION Patient Condition: Good HOME CARE INSTRUCTIONS: Special Diet: G TUBE FEEDING FOLLOW UP/APPOINTMENTS Follow-up Plan F/U WITH YOUR NEUROSURGEON AND PCP OZZY CORNEJO Aug 06, 2017 16:20
--- NOTE | 2017-08-06 18:52 | CONS ---
Date/Time of Note Date/Time of Note DATE: 08/06/17 TIME: 18:49 Consult Date/Type/Reason Admit Date/Time Jul 30, 2017 at 14:31 Initial Consult Date 08/01/17 Type of Consultation: Pulmonary Subjective No events. Being d/c'ed Objective Vital Signs Date Time Temp Pulse Resp B/P Pulse Ox O2 Delivery O2 Flow Rate FiO2 08/06/17 16:21 98.0 90 16 95/62 94 Intake and Output 08/05/17 08/05/17 08/06/17 15:00 23:00 07:00 Intake Total 700 ml 800 ml 750 ml Output Total 550 ml 650 ml 500 ml Balance 150 ml 150 ml 250 ml Exam HEENT: Neck supple; no JVD; no LAD CVS: RRR, S1 and S2 CHEST: Clear ABD: Soft, NT, + BS EXT: No c/c/e Results/Medications Result Diagram: 08/05/17 0649 08/05/17 0654 Medications Current Medications Enoxaparin Sodium (Lovenox) 30 mg DAILY SC Last administered on 08/06/17 09:23 ; Admin Dose 30 MG; Start 07/31/17 at 09:00 Levetiracetam (Keppra Liquid) 1,000 mg BID GTB Last administered on 08/06/17 09:23; Admin Dose 1,000 MG; Start 07/30/17 at 15:15 Oxcarbazepine (Trileptal Susp (Ped)) 300 mg BID GTB Last administered on 09:23; Admin Dose 300 MG; Start 07/31/17 at 21:00 Acetaminophen (Tylenol Liquid) 650 mg Q6H PRN GTB PAIN AND OR ELEVATED TEMP Last administered on 08/04/17 09:18; Admin Dose 650 MG; Start 08/01/17 at 19:00 Lorazepam (Ativan) 1 mg Q1M PRN IV SEIZURES; Start 08/01/17 at 19:00 Diphenhydramine HCl (Benadryl) 25 mg Q6H PRN IV ITCHING Last administered on 20:37; Admin Dose 25 MG; Start 08/02/17 at 19:00 Nystatin (Nystatin Cr) 1 applic BID TOP Last administered on 08/06/17 09:26; Admin Dose 1 APPLIC; Start 08/04/17 at 21:00 Hydrocortisone (Hydrocortisone 0.5% Cr) 1 applic BID TOP Last administered on t 09:26; Admin Dose 1 APPLIC; Start 08/04/17 at 21:00 Assessment/Plan Additional Assessment/Plan IMP: 1. Sepsis likely 2/2 pneumonia: Improved 2. Congenital disorder with history of epilepsy and CONSTRUCTION LINEMAN shunt placement RECS: 1. Agree with D/C planning RENÉE DOZIER MD Aug 06, 2017 18:52
[2017-08-07] VITALS (9 sets, daily range): BP systolic 100–113; BP diastolic 54–73; PULSE 70–106; RESP 17–20
[2017-08-07] MEDS: HYDROCORTISONE 0.5% 28.35 GM CR TOP SCH (08:16)
[2017-08-07] MEDS: ENOXAPARIN 30 MG/0.3 ML SYG SC SCH (08:16)
[2017-08-07] MEDS: LEVETIRACETAM (100 MG/ML) 5ML CUP GTB SCH (08:16)
[2017-08-07] MEDS: NYSTATIN 15 GM CR TOP SCH (08:16)
[2017-08-07] MEDS: OXCARBAZEPINE SUSP 60 MG/ML (PO SYG) GTB SCH (09:44)
--- NOTE | 2017-08-07 10:25 | CONS ---
Date/Time of Note Date/Time of Note DATE: 08/07/17 TIME: 10:24 Assessment/Plan Assessment/Plan Additional Assessment/Plan Plan and recommendations; 1. Patient admitted with recurrent pneumonia likely from aspiration with clinical improvement. 2. Placement of WIND COMMISSIONING TECHNICIAN shunt in the right pleural space. Likely causing current chest x-ray findings which give the appearance of right lower lobe pneumonia/ loculated pleural effusion. N 3. Cerebral palsy. Continue current supportive care. Consider discharge. Consultation Date/Type/Reason Admit Date/Time Jul 30, 2017 at 14:31 Initial Consult Date 08/01/17 Type of Consultation: Pulmonary 24 HR Interval Summary Free Text/Dictation Patient condition remains stable. Remains essentially unresponsive. Has remained hemodynamically stable. General exam; young male, currently in no distress. Exam/Review of Systems Vital Signs Vitals Vital Signs Date Time Temp Pulse Resp B/P Pulse Ox O2 Delivery O2 Flow Rate FiO2 08/07/17 08:28 91 08/07/17 08:07 99.1 17 113/69 96 Intake and Output 08/06/17 08/06/17 08/07/17 15:00 23:00 07:00 Intake Total 750 ml 800 ml Output Total 550 ml 650 ml Balance 200 ml 150 ml Exam Chief exam; supple neck, no JVD. No lymphadenopathy. Midline trachea. No thyromegaly. Multiple well-healed cranial scars are present. Chest exam; diminished breath sounds bilaterally. S1-S2 audible, no murmurs. Regular rhythm. Abdomen exam; soft, nondistended. No organomegaly. G-tube in place. Extremity exam; no peripheral edema. Patient does have contractures involving all 4 extremities. ELECTION SUPERVISOR exam; patient remains unresponsive. Results Result Diagram: 08/05/17 0649 08/05/17 0654 Medications Medications Current Medications Enoxaparin Sodium (Lovenox) 30 mg DAILY SC Last administered on 08/07/17 08:16 ; Admin Dose 30 MG; Start 07/31/17 at 09:00 Levetiracetam (Keppra Liquid) 1,000 mg BID GTB Last administered on 08/07/17 08:16; Admin Dose 1,000 MG; Start 07/30/17 at 15:15 Oxcarbazepine (Trileptal Susp (Ped)) 300 mg BID GTB Last administered on 09:44; Admin Dose 300 MG; Start 07/31/17 at 21:00 Acetaminophen (Tylenol Liquid) 650 mg Q6H PRN GTB PAIN AND OR ELEVATED TEMP Last administered on 08/04/17 09:18; Admin Dose 650 MG; Start 08/01/17 at 19:00 Lorazepam (Ativan) 1 mg Q1M PRN IV SEIZURES; Start 08/01/17 at 19:00 Diphenhydramine HCl (Benadryl) 25 mg Q6H PRN IV ITCHING Last administered on 20:37; Admin Dose 25 MG; Start 08/02/17 at 19:00 Nystatin (Nystatin Cr) 1 applic BID TOP Last administered on 08/07/17 08:16; Admin Dose 1 APPLIC; Start 08/04/17 at 21:00 Hydrocortisone (Hydrocortisone 0.5% Cr) 1 applic BID TOP Last administered on 08:16; Admin Dose 1 APPLIC; Start 08/04/17 at 21:00 BRIJESH GARCIA Aug 07, 2017 10:25
--- NOTE | 2017-08-07 13:51 | PN ---
Date/Time of Note Date/Time of Note DATE: 08/07/17 TIME: 13:43 Assessment/Plan VTE Prophylaxis VTE Prophylaxis Intervention: heparin Lines/Catheters IV Catheter Type (from Nrs): Peripheral IV Urinary Cath still in place: Yes Reason Cath still needed: terminal illness/intractable pain Assessment/Plan Assessment/Plan 1. Sepsis most likely 2/2 aspiration PNA- resolved - patient remains afebrile with normal WBC - Completed course of antibiotics with questionable reaction to cefepime - CT chest shows loculated right pleural fluid accumulation but this be secondary to shunt placement - Blood cultures negative 2. 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 Nutrition - Continue tube feeds 4. Disposition - Ambulance arranged and stable for discharge home Subjective 24 Hr Interval Summary Free Text/Dictation Patient seen and examined. Clinically stable and was supposed to be d/c yesterday but due to transportation issues remained inpatient. No overnight events. Exam/Review of Systems Vital Signs Vitals Vital Signs Date Time Temp Pulse Resp B/P Pulse Ox O2 Delivery O2 Flow Rate FiO2 08/07/17 12:18 106 08/07/17 12:14 98.1 17 103/73 100 Intake and Output 08/06/17 08/06/17 08/07/17 15:00 23:00 07:00 Intake Total 750 ml 800 ml Output Total 550 ml 650 ml Balance 200 ml 150 ml Exam General: NAD, nonverbal, moving around to voice and following some commands CVS: regular rate and rhythm, no murmurs Lungs: CTA b/l anteriorly, no wheezes or crackles Abd: soft, NT, ND, no guarding or rebound Ext: moving all extremities, no edema, cyanosis, or clubbing. Results Result Diagram: 08/05/17 0649 08/05/17 0654 Medications Medications Current Medications Enoxaparin Sodium (Lovenox) 30 mg DAILY SC Last administered on 08/07/17 08:16 ; Admin Dose 30 MG; Start 07/31/17 at 09:00 Levetiracetam (Keppra Liquid) 1,000 mg BID GTB Last administered on 08/07/17 08:16; Admin Dose 1,000 MG; Start 9/10/17 at 15:15 Oxcarbazepine (Trileptal Susp (Ped)) 300 mg BID GTB Last administered on 09:44; Admin Dose 300 MG; Start 07/31/17 at 21:00 Acetaminophen (Tylenol Liquid) 650 mg Q6H PRN GTB PAIN AND OR ELEVATED TEMP Last administered on 08/04/17 09:18; Admin Dose 650 MG; Start 08/01/17 at 19:00 Lorazepam (Ativan) 1 mg Q1M PRN IV SEIZURES; Start 08/01/17 at 19:00 Diphenhydramine HCl (Benadryl) 25 mg Q6H PRN IV ITCHING Last administered on 20:37; Admin Dose 25 MG; Start 08/02/17 at 19:00 Nystatin (Nystatin Cr) 1 applic BID TOP Last administered on 08/07/17 08:16; Admin Dose 1 APPLIC; Start 08/04/17 at 21:00 Hydrocortisone (Hydrocortisone 0.5% Cr) 1 applic BID TOP Last administered on 08:16; Admin Dose 1 APPLIC; Start 08/04/17 at 21:00 CHONG YOUNGER MD Aug 07, 2017 13:51
--- NOTE | 2017-08-07 15:09 | DS ---
Date/Time of Note Date/Time of Note DATE: 08/07/17 TIME: 14:58 Discharge Summary Admission/Discharge Info Admit Date/Time Jul 30, 2017 at 14:31 Discharge Date/Time Aug 07, 2017 at 14:15 Discharge Diagnosis 1. Sepsis likely 2/2 pneumonia: Resolved -Status post antibiotics- patient appears to have had a drug allergy to cefepime -Adequately fluid resuscitated -CT chest shows loculated right pleural fluid accumulation but this be secondary to shunt placement, according to mother patient was recently altered such that the fluid deposits into the lungs as apparently it was not working when it was being placed into the stomach, discussed with pulmonology and will cancel pulmonary decortication -Patient to follow-up with his neurosurgeon upon DC -Blood cultures negative 2. Congenital disorder with history of epilepsy and ANATOMY PROFESSOR shunt placement - Continue keppra 1000 BID and oxcarbazepine 300 BID -CT head shows no hydrocephalus 3. Allergic drug reaction secondary to cefepime -Continue cortisol 4. Tinea infection of groin -Continue nystatin Patient Condition: Good Hospital Course Patient is a 31 yo male with cerebral palsy, ANATOMY PROFESSOR shunt w revision and infection previously, recent episode of pneumonia who presents with sepsis. Patient was admitted with a diagnosis of pneumonia and started antibiotics, of note patient had no leukocytosis but did have fevers which resolved. Patient developed a drug allergy to cefepime and was discontinued. Allergic rash did improve with cortisol the patient was given nystatin for fungal infection in the groin. Patient did have a CT chest that showed a loculated right-sided pleural effusion , patient was seen by pulmonology. After discussion with the patient's mom was noted that patient had a recent ANATOMY PROFESSOR shunt adjustment where the shunt deposition point was changed from the stomach to the lung and was felt that the findings on CT chest were due to this and so no further interventions were indicated. This was discussed with pulmonology who agreed with this plan. Patient did have brain CT that showed no hydrocephalus. Patient's mother was told to have patient follow-up with his neurosurgeon at [facility]. On the of discharge patient's vitals, lab and physical exam were stable, his rash on his body and groin were improving, there are no further acute issues and questions were answered. Home Meds Active Scripts Nystatin* (Nystatin*) 15 Gm Cr, 1 APPLIC TOP BID, #1 TUB Prov:OZZY CORNEJO 08/06/17 Hydrocortisone* Topical (Hydrocortisone* Topical) 0.5%-28.35 Gm Cream..g., 1 APPLIC TOP BID, #1 TUB Prov:OZZY CORNEJO 08/06/17 Lansoprazole* (Prevacid* Soltab) 30 Mg Tab, 30 MG GTB BID for 30 Days, TAB Prov:MIGUEL ANGEL ZAPATA V. SLITTER SERVICE AND SETTER 10/12/16 Docusate Sodium* (Colace*) 100 Mg Cap, 100 MG PO Q12H for 30 Days, CAP Prov:STEVE ATWOOD 03/17/16 Levetiracetam* (Keppra* (Ped)) 100 Mg/Ml Liq, 1000 MG PO BID for 30 Days, BOTTLE Prov:STEVE ATWOOD 03/17/16 Reported Medications Oxcarbazepine* (Oxcarbazepine* Liq) 300 Mg/5 Ml Oral.susp, 300 MG PO BID, ML 10/09/16 Follow-up Plan F/U WITH YOUR NEUROSURGEON AND PCP Primary Care Provider Rex Robert MD Time spent on discharge: > 30 minutes OZZY CORNEJO Aug 07, 2017 15:08
== END 2017-08-07 14:15 | disposition home or self-care (01) | DRG 871 ==
LOC: E/R 11:58 → MS4 14:31
PROVIDERS: ADMIT Internal Medicine; ATTEND Internal Medicine
DX: A41.9 Sepsis, unspecified organism (principal); J18.9 Pneumonia, unspecified organism; G91.9 Hydrocephalus, unspecified; G80.9 Cerebral palsy, unspecified; F09 Unspecified mental disorder due to known physiological condition; B35.9 Dermatophytosis, unspecified; G40.909 Epilepsy, unspecified, not intractable, without status epilepticus; Z98.2 Presence of cerebrospinal fluid drainage device; T36.1X5A Adverse effect of cephalosporins and other beta-lactam antibiotics, initial encounter; Y92.239 Unspecified place in hospital as the place of occurrence of the external cause
CPT/HCPCS: 70450; 71010; 71260; 80048; 80053; 81001; 82550; 83735; 85025; 87040; 87081; 96365; 96366; J0692; J1200; J1650; J3480; J7030; J7070; Q9967

== ENCOUNTER 2018-01-15 12:42 | Inpatient (IN) | END 2018-01-19 17:10 | disposition home or self-care (01) | DRG 871 ==

== ENCOUNTER 2018-04-24 11:20 | Emergency (ER) | END 2018-04-24 15:45 | disposition home or self-care (01) ==

== ENCOUNTER 2019-01-04 07:45 | Day surgery (SDC) | payer OTHER ==
[~2019-01-04 07:45] MED LIST changes: -DOCU-144 PO; -KEP100S PO; +LEVE500S8 PO; -LEVO750T25 PO; +NYST15CR28 TOP; +OXCA300O PO; -OXCA300O4 PO; -OXCA300T3 PO; +PREL60L PO; -RANITIDINE; -SENN-36 PO; +SULF20OR7 PO; -UDREG GTB
[2019-01-04] MEDS ORDERED: RANITIDINE (08:24)
[2019-01-04] MEDS ORDERED: esomeprazole (08:24)
[2019-01-04] MEDS ORDERED: TRILEPTAL (08:26)
[2019-01-04] MEDS ORDERED: KEPPRA (08:26)
[2019-01-04 10:11] VITALS: BP 116/63; PULSE 78; RESP 18
[2019-01-04 10:14] VITALS: BP 112/63; PULSE 93; RESP 18
--- NOTE | 2019-01-04 16:05 | GILP ---
DATE OF PROCEDURE: PROCEDURE: Change of G-tube. INDICATION: A 33-year-old male undergoing this procedure for a change of G-tube. The risks of the p rocedure, related and unrelated complications, anesthetic risks, alternatives discussed. Informed co nsent was obtained. DESCRIPTION OF PROCEDURE: The patient was brought to the GI lab. The existing G-tube was removed by deflating the balloon. Through the same gastrocutaneous fistula, a 20-Somali G-tube was placed. Ba lloon was inflated with 20 mL of normal saline. External bumper was secured. There was a retrograde flow of gastric content, confirming its position in the stomach. IMPRESSION: Successful change of G-tube done. PLAN: Resume feeding through the G-tube. If there is any problem or issue, the patient should go to the emergency room. Dictated By: LÓPEZ OLIVIA/BRYAN Conf#: [id number] DID#: [id number]
== END 2019-01-04 14:42 | disposition home or self-care (01) ==
LOC: GIL 07:45
PROVIDERS: ATTEND Internal Medicine Gastroenterology
DX: K94.23 Gastrostomy malfunction (principal); Y84.8 Other medical procedures as the cause of abnormal reaction of the patient, or of later complication, without mention of misadventure at the time of the procedure; Y82.8 Other medical devices associated with adverse incidents
CPT/HCPCS: 43762; Z7610

== ENCOUNTER 2019-03-04 16:44 | Emergency (ER) | payer OTHER ==
[~2019-03-04] VITALS: Wt 70.0 kg
[~2019-03-04 16:44] MED LIST changes: +KEPPRA; -LANS30TA6 GTB; -LEVE500S8 PO; -NYST15CR28 TOP; -OXCA300O PO; -PREL60L PO; +RANITIDINE; -SULF20OR7 PO; +TRILEPTAL; +esomeprazole
[2019-03-04 21:24] VITALS: BP 98/74; PULSE 73; RESP 18
--- NOTE | 2019-03-04 21:52 | ERD ---
ER Documentation Chief Complaint Chief Complaint LEAKING AT G TUBE SITE DURING FEEDING. NO BLEEDING OR TUBE MIGRATION HPI Patient is a 33-year-old male with cerebral palsy and significant comorbidities since who presents for G-tube leakage. 3 days ago the patient started with G-tube leakage around the G-tube site. The leakage was worse today. Patient has no fevers. The patient has had this G-tube in place since December per the sister who takes care of him. Upon review of old medical records the patient has multiple visits for various complaints. ROS All systems reviewed and are negative except as per history of present illness. Medications Home Meds Reported Medications [Trileptal] No Conflict Check 01/04/19 [Keppra] No Conflict Check 01/04/19 [Ranitidine] No Conflict Check 01/04/19 [esomeprazole] No Conflict Check 01/04/19 Allergies Allergies: Coded Allergies: Penicillins (Verified Allergy, Unknown, 04/24/18) amoxicillin (Verified Allergy, Unknown, 04/24/18) throat swells hives azithromycin (Verified Allergy, Unknown, 04/24/18) codeine (Unverified Allergy, Unknown, 04/24/18) morphine (Unverified Allergy, Unknown, 04/24/18) vancomycin (Unverified Allergy, Unknown, 04/24/18) PMhx/Soc History of Surgery: Yes (CEREBRAL SHUNT, SPINAL SX, PEDIARTIC HEART SX) Anesthesia Reaction: No Hx Neurological Disorder: Yes (CEREBRAL PALSY, SEIZURES) Hx Respiratory Disorders: No Hx Cardiac Disorders: No Hx Psychiatric Problems: No Hx Miscellaneous Medical Probl: Yes (severe MR, deaf, blind, mute, 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 Neck: Full range of motion. No meningismus. Resp: Clear to auscultation bilaterally Cardio: Regular rate and rhythm, no murmurs Abd: G-tube site in the left upper quadrant has leakage around the site Skin: No petechiae or rashes Back: No midline or flank tenderness Ext: No cyanosis, or edema Neur: Awake Procedures/MDM G-tube Insertion by me: Sterile technique, local prep and lubrication, time out performed. Location: Epigastrum Device: 22 english G-tube Technique: Dotty pressure with twisting motion. Balloon inflation Results: Gastric contents expressed. Compl: none X-ray Abdomen 1V Interpreted by me: Free Air: None Bowel Gas: Nonspecific Contrast: Intraluminal Patient will be discharged into the sister's care. Departure Diagnosis: Primary Impression: Encounter for feeding tube placement Condition: Fair Patient Instructions: Feeding Tube Replacement Referrals: GRISELDA LUCIO MD, PIYUSH K MD Additional Instructions: Call your primary care doctor TOMORROW for an appointment during the next 1 WEEK.Tell the office secretary that you were referred from this facility.See the doctor sooner or return here if your condition worsens before your appointment time. JAVI VILLARREAL MD Mar 04, 2019 21:52
== END 2019-03-04 21:25 | disposition home or self-care (01) ==
LOC: E/R 16:44
DX: Z43.1 Encounter for attention to gastrostomy (principal)
CPT/HCPCS: 49440; 74018; Z7502; Z7610

== ENCOUNTER 2019-07-28 15:16 | Inpatient (IN) | payer OTHER ==
[~2019-07-28] VITALS: Ht 154.9 cm; Wt 54.4 kg
[~2019-07-28 15:16] MED LIST changes: +LEVE100S ORAL; +LEVO500T48 GTB; +OXCA300O4 ORAL; +PANT40TA3 PO; +PANT40TA4 ORAL
[2019-07-28] MEDS ORDERED: SODIUM CHLORIDE 0.9% 1L BAG IV* STA (15:29)
[2019-07-28] MEDS ORDERED: IBUPROFEN 600 MG TAB PO STA (15:29)
[2019-07-28] MEDS ORDERED: CEFTRIAXONE 1 GM/50 ML (PMX) 50 ML IVPB ONE (15:30)
[2019-07-28] MEDS ORDERED: AZITHROMYCIN 500MG/NS (PMX) 250 ML IVPB ONE (15:30)
[2019-07-28] MEDS ORDERED: LEVETIRACETAM 500 MG (PMX) 100 ML IVPB ONE (15:30)
[2019-07-28] MEDS ORDERED: LORAZEPAM 2 MG INJ ONE (15:46)
[2019-07-28] MEDS ORDERED: LORAZEPAM 2 MG INJ IV ONE (16:00)
[2019-07-28] MEDS ORDERED: DIPHENHYDRAMINE 50 MG INJ IV PRN (16:00)
[2019-07-28] MEDS ORDERED: ALBUTEROL 0.5% (NEB) 2.5 MG/0.5 ML AMP INH STA (16:39)
[2019-07-28] MEDS ORDERED: IPRATROPIUM (NEB) 0.5 MG/2.5 ML AMP HHN ONE (17:00)
[2019-07-28] MEDS ORDERED: LEVALBUTEROL (NEB) 1.25 MG/0.5 ML AMP HHN ONE (17:00)
[2019-07-28] MEDS ORDERED: NACL 0.9% 3 ML SYG IV SCH (17:30)
[2019-07-28] MEDS ORDERED: ONDANSETRON 4 MG INJ IV PRN (17:30)
[2019-07-28] MEDS ORDERED: ACETAMINOPHEN 650MG/20.3ML CUP GTB PRN (17:30)
[2019-07-28] MEDS: LEVOFLOXACIN 500MG/D5W (PMX) 100 ML IVPB SCH (17:42)
[2019-07-28] MEDS: SOD CHLORIDE 0.9% 1,000 ML IV SCH (17:43)
[2019-07-28] MEDS ORDERED: LEVALBUTEROL (NEB) 0.63 MG/3 ML AMP HHN PRN (18:30)
[2019-07-28] MEDS: LORAZEPAM 2 MG INJ IV PRN (19:24)
[2019-07-28] MEDS: ACETAMINOPHEN 650 MG SUPP PR PRN ×2 (19:27→21:39)
[2019-07-28] MEDS ORDERED: IBUPROFEN LIQUID (PED) 20 MG/ML CUP PO STA (20:35)
[2019-07-28] MEDS ORDERED: IBUPROFEN 200 MG TAB PO ONE (21:00)
[2019-07-28] MEDS: LEVETIRACETAM (100 MG/ML) 5ML CUP GTB SCH (22:48)
[2019-07-28] MEDS: OXCARBAZEPINE 300 MG TAB GTB SCH (22:48)
[2019-07-28] MEDS: AZTREONAM 2 GM in SOD CHLORIDE 0.9% 100 ML IVPB SCH (22:49)
[2019-07-28 23:17] VITALS: Ht 154.9 cm; Wt 54.4 kg
[2019-07-28] MEDS: RANITIDINE (15 MG/ML) 10ML CUP NGT SCH (23:33)
[2019-07-29] VITALS (13 sets, daily range): BP systolic 74–107; BP diastolic 49–66; PULSE 57–108; RESP 18–20
[2019-07-29] MEDS ORDERED: SOD CHLORIDE 0.9% 1,000 ML IV ONE ×2 (04:30→10:30)
[2019-07-29] MEDS ORDERED: IBUPROFEN 600 MG TAB GTB ONE (05:00)
[2019-07-29] MEDS: SOD CHLORIDE 0.9% 1,000 ML IV SCH ×3 (05:10→23:47)
[2019-07-29] MEDS: AZTREONAM 2 GM in SOD CHLORIDE 0.9% 100 ML IVPB SCH ×3 (05:41→22:23)
[2019-07-29] MEDS: RANITIDINE (15 MG/ML) 10ML CUP NGT SCH ×2 (09:01→20:03)
[2019-07-29] MEDS: OXCARBAZEPINE 300 MG TAB GTB SCH ×2 (09:01→20:03)
[2019-07-29] MEDS: LEVETIRACETAM (100 MG/ML) 5ML CUP GTB SCH ×2 (09:01→20:03)
[2019-07-29] MEDS: ENOXAPARIN 40 MG/0.4 ML SYG SC SCH (10:00)
[2019-07-29] MEDS ORDERED: POTASSIUM CHLORIDE (1.33 MEQ/ML PO SYG) PEG ONE (10:30)
[2019-07-29] MEDS ORDERED: POTASSIUM CHLORIDE 20 MEQ POWDER FOR ORAL SOLN PEG SCH (11:00)
[2019-07-29] MEDS ORDERED: POTASSIUM CHLORIDE 20 MEQ POWDER FOR ORAL SOLN GTB SCH (11:00)
[2019-07-29] MEDS: LEVOFLOXACIN 500MG/D5W (PMX) 100 ML IVPB SCH (17:09)
[2019-07-29] MEDS: LORAZEPAM 2 MG INJ IV PRN (19:02)
[2019-07-30 04:29] VITALS: BP 135/111; PULSE 81; RESP 18
[2019-07-30] MEDS: AZTREONAM 2 GM in SOD CHLORIDE 0.9% 100 ML IVPB SCH ×3 (06:15→21:45)
[2019-07-30 07:28] VITALS: BP 86/55; PULSE 85; RESP 18
[2019-07-30] MEDS: OXCARBAZEPINE 300 MG TAB GTB SCH ×2 (09:16→20:16)
[2019-07-30] MEDS: LEVETIRACETAM (100 MG/ML) 5ML CUP GTB SCH ×2 (09:16→20:16)
[2019-07-30] MEDS: RANITIDINE (15 MG/ML) 10ML CUP NGT SCH ×2 (09:16→20:16)
[2019-07-30] MEDS: ENOXAPARIN 40 MG/0.4 ML SYG SC SCH (09:54)
[2019-07-30] MEDS: SOD CHLORIDE 0.9% 1,000 ML IV SCH ×2 (10:03→21:45)
[2019-07-30 11:33] VITALS: BP 94/54; PULSE 73; RESP 18
[2019-07-30 15:36] VITALS: BP 104/62; PULSE 62; RESP 18
[2019-07-30] MEDS: LEVOFLOXACIN 500MG/D5W (PMX) 100 ML IVPB SCH (16:35)
[2019-07-30 19:19] VITALS: BP 104/65; PULSE 60; RESP 19
[2019-07-30 23:26] VITALS: BP 97/67; PULSE 80; RESP 19
[2019-07-31 04:01] VITALS: BP 102/64; PULSE 78; RESP 18
[2019-07-31] MEDS: AZTREONAM 2 GM in SOD CHLORIDE 0.9% 100 ML IVPB SCH (06:07)
[2019-07-31] MEDS: SOD CHLORIDE 0.9% 1,000 ML IV SCH (06:09)
[2019-07-31 07:16] VITALS: BP 95/64; PULSE 80; RESP 16
[2019-07-31] MEDS: OXCARBAZEPINE 300 MG TAB GTB SCH (08:50)
[2019-07-31] MEDS: RANITIDINE (15 MG/ML) 10ML CUP NGT SCH (08:50)
[2019-07-31] MEDS: LEVETIRACETAM (100 MG/ML) 5ML CUP GTB SCH ×2 (08:50→21:53)
[2019-07-31] MEDS: ENOXAPARIN 40 MG/0.4 ML SYG SC SCH (09:19)
[2019-07-31 11:50] VITALS: BP 97/62; PULSE 79; RESP 17
[2019-07-31] MEDS ORDERED: POTASSIUM CHLORIDE 20 MEQ POWDER FOR ORAL SOLN NGT ONE (13:30)
[2019-07-31 15:30] VITALS: BP 92/62; PULSE 74; RESP 16
[2019-07-31 20:00] VITALS: BP 95/55; PULSE 75; RESP 17
[2019-07-31] MEDS: OXCARBAZEPINE SUSP 60 MG/ML (PO SYG) GTB SCH (21:53)
[2019-07-31] MEDS: RANITIDINE (15 MG/ML) 10ML CUP GTB SCH (21:53)
[2019-08-01 02:00] VITALS: BP 92/50; PULSE 64; RESP 18
[2019-08-01] MEDS ORDERED: LEVOFLOXACIN 500 MG TAB GTB SCH (06:00)
[2019-08-01 08:00] VITALS: BP 96/66; PULSE 90; RESP 16
[2019-08-01] MEDS: RANITIDINE (15 MG/ML) 10ML CUP GTB SCH (08:42)
[2019-08-01] MEDS: LEVETIRACETAM (100 MG/ML) 5ML CUP GTB SCH (08:42)
[2019-08-01] MEDS: ENOXAPARIN 40 MG/0.4 ML SYG SC SCH (08:43)
[2019-08-01] MEDS: OXCARBAZEPINE SUSP 60 MG/ML (PO SYG) GTB SCH (09:23)
[2019-08-01 14:00] VITALS: BP 95/60; PULSE 98; RESP 16
== END 2019-08-01 19:38 | disposition home or self-care (01) | DRG 871 ==
LOC: E/R 15:16 → TEL 16:42 → UNDOADMIN 16:42 → PP2 07-31 15:15
PROVIDERS: ADMIT Internal Medicine; ATTEND Internal Medicine
DX: A41.9 Sepsis, unspecified organism (principal); J69.0 Pneumonitis due to inhalation of food and vomit; E87.2 Acidosis; Q05.4 Unspecified spina bifida with hydrocephalus; E87.6 Hypokalemia; R13.10 Dysphagia, unspecified; Z93.1 Gastrostomy status; G40.909 Epilepsy, unspecified, not intractable, without status epilepticus; G80.8 Other cerebral palsy; H91.3 Deaf nonspeaking, not elsewhere classified; E86.0 Dehydration; R74.0 Nonspecific elevation of levels of transaminase and lactic acid dehydrogenase [LDH]; H54.7 Unspecified visual loss; Z98.2 Presence of cerebrospinal fluid drainage device; Z74.01 Bed confinement status; Z88.0 Allergy status to penicillin
CPT/HCPCS: 36415; 70450; 71045; 80048; 80053; 81003; 83605; 83690; 83735; 84145; 84484; 85025; 85610; 85730; 87086; 93005; 94644; 96365; 96375; 97161; 97165; J0456; J0696; J1200; J1650; J1953; J1956; J2060; J7030